=== PATIENT | male | born 1950 | race African-American/Black ===

== ENCOUNTER → 2016-03-25 | Outpatient (CLI) | payer OTHER ==
[~2016-03-25] MED LIST: REGADENOSON INJ 0.4 MG/5 ML DISP.SYRIN IV ONE
--- NOTE | 2016-03-25 21:27 | DRAGON STRESS TEST REPORT ---
INTRAVENOUS LEXISCAN CARDIOLITE STRESS TEST USING SINGLE PHOTON EMMISION COMPUTERIZED TOMOGRAPHIC. DATE OF PROCEDURE: March 25, 2016 INDICATION : Chest pain CARDIAC RISK FACTORS: Family history of CAD RESTING EKG: Sinus rhythm, without any baseline ST-T wave changes STRESS EKG: No significant changes noted with LexiScan bolus REASON FOR TERMINATION: Protocol. PROCEDURE REPORT: Baseline heart rate 61 beats per minute with blood pressure of 120/61. Patient had no significant complaints. Heart rate at 2 minutes post bolus 105 with a blood pressure of 111/59. 3 minutes post bolus heart rate 89 with blood pressure of 117/70. No significant EKG changes were noted. Patient had no significant complaints during the procedure or postprocedure. CONCLUSIONS: Normal EKG and hemodynamic response to IV LexiScan. NUCLEAR DATA: At rest the patient was given 16.40 millicuries of technetium 99 sestamibi injected intravenously. As per protocol rest gated SPECT images were obtained. Subsequently the patient was given intravenous LexiScan at a dose of 0.4 mg in 5 mL intravenously, followed by flush with normal saline. Subsequently the stress dose of 47.6 millicuries of technetium 99 sestamibi was injected intravenously. As per protocol stress gated images were obtained. NUCLEAR INTERPRETATION: Both raw and processed data were used for interpretation. Visual, qualitative, computer-generated quantitative data was used. There was good myocardial uptake of technetium compound. Motion artifact and soft tissue attenuations were noted. Increased visceral uptake was noted. No definitive areas of transient perfusion defect noted except for mild decreased uptake in the mid and distal inferior wall in stress images as compared to rest images. There was however no corresponding regional wall motion abnormalities noted in gated imaging. Possibility of differences in attenuation artifact cannot be ruled out. No definitive areas of fixed perfusion defect or scars noted. EKG gated imaging showed LV EF at 47 %, rest and stress gated EF similar visually. T. I D. ratio was 1.15. Lung heart ratio noted to be within normal limits 0.28. No significant extracardiac and abnormal radiotracer activities were noted. RV free wall uptake was noted to be mildly increased. IMPRESSION: Also refer to comments under nuclear interpretation. Also test results needs to be interpreted in the context of pretest probability. 1. Probable mild distal and mid inferior wall LexiScan induced myocardial ischemia. Please see comments under nuclear interpretation as well. 2. There is no definitive scintigraphic evidence of myocardial infarction/scar. 3. EKG gated imaging shows left ejection fraction of approximately 47 %. 4. Clinical correlation requested as occasionally single vessel disease or balanced ischemia could be missed. In approximately 10% of the cases Lexiscan may not cause adequate vasodilatory stress. RECOMMENDATIONS: Aggressive risk factor modification, medical therapy. Close cardiology follow- up is indicated. Clinical correlation with echocardiogram derived ejection fraction. Inability to exercise by itself can lead to increased cardiovascular event risks. Consider cardiology consultation if clinically indicated. I AM AVAILABLE FOR CARDIOLOGY CONSULTATION AND FOLLOWUP IF REQUESTED BY PMD Katherine Hummel M.D., [employer] Evaluator performance improvement analyst, Board certified in cardiovascular diseases, Nuclear cardiology, Echocardiography Cardiac CT and cardiac MRI Ph. [phone] [facility] HOSPITALRosemary
== END ==
LOC: RAD 06:45
PROVIDERS: ATTEND Nurse Practitioner Adult Health
DX: R07.89 Other chest pain (principal)
CPT/HCPCS: 93017; 78452; A9500; J2785; Q9969

== ENCOUNTER 2016-09-05 21:30 | Inpatient (IN) | payer OTHER, MEDICARE ==
--- NOTE | 2016-09-05 21:43 | ER Document Report ---
ED Neuro Symptoms/Deficit - General Mode of Arrival: Ambulatory Information source: Patient Notes: Patient is a 66 year old male presenting to the emergency department for possible stroke. Patient was rushed back into a room from triage. Patient's symptoms were onset less than 1 hour prior to arrival. Patient was complaining of right hand numbness and then he couldn't remember what he was saying. Patient 's son stood him up and he was leaning to the right side and unable to walk so he was put in the vehicle to come to the ED. Patient then had some difficulty getting his words out on the way to the ED but was unable to speak. Patient is tearful now during exam. Patient was normal earlier this evening when he had dinner and was able to go to [employer] this morning. Patient denies any abdominal pain, nausea, vomiting, diearrhea, chest pain, headache, neck pain, or shortness of breath. Patient's initial blood pressure was 129/85 with a blood glucose level of 91. Patient was quickly evaluated and sent to CT. Patient does not have any history of CVA, TIA or diabetes mellitus. Patient is not on any blood thinners. Patient has had open heart surgery. TRAVEL OUTSIDE OF THE [place] IN LAST 30 DAYS: No <ANICETO MARTE - Last Filed: 09/05/16 23:23> <GRAHAM SMITH - Last Filed: 09/05/16 23:45> - General Chief Complaint: S/S of Possible Stroke Stated Complaint: POSSIBLE STROKE Time Seen by Provider: 09/05/16 21:41 - Related Data Allergies/Adverse Reactions: No Known Allergies Allergy (Unverified 11/30/15 09:57) Past Medical History - General Information source: Patient - Social History Smoking Status: Never Smoker Cigarette use (# per day): No Family History: None Patient has suicidal ideation: No Patient has homicidal ideation: No - Past Medical History Cardiac Medical History: Reports: Hx Congestive Heart Failure, Hx Coronary Artery Disease, Hx Hypertension Endocrine Medical History: Reports: Hx Hypothyroidism Musculoskeltal Medical History: Reports Hx Arthritis Past Surgical History: Reports: Hx Cardiac Surgery, Hx Coronary Artery Bypass Graft <ANICETO MARTE - Last Filed: 09/05/16 23:23> Review of Systems - Review of Systems Constitutional: No symptoms reported EENT: No symptoms reported Cardiovascular: No symptoms reported Respiratory: No symptoms reported Gastrointestinal: No symptoms reported Genitourinary: No symptoms reported Male Genitourinary: No symptoms reported Musculoskeletal: No symptoms reported Skin: No symptoms reported Hematologic/Lymphatic: No symptoms reported Neurological/Psychological: See HPI, Weakness, Numbness -: Yes All other systems reviewed and negative <ANICETO MARTE - Last Filed: 09/05/16 23:23> Physical Exam - Notes Notes: GENERAL: Alert, oriented x3, tearful. HEAD: Normocephalic, atraumatic. EYES: Pupils equal, round, and reactive to light. Extraocular movements intact. ENT: Oral mucosa moist, tongue midline, normal gag reflex, no airway compromise. NECK: Full range of motion. Supple. Trachea midline. LUNGS: Clear to auscultation bilaterally, no wheezes, rales, or rhonchi. No respiratory distress. HEART: Regular rate and rhythm. No murmurs, gallops, or rubs. ABDOMEN: Soft, non-tender. Non-distended. Bowel sounds present in all 4 quadrants. EXTREMITIES: Moves all 4 extremities spontaneously. No edema, radial and dorsalis pedis pulses 2/4 bilaterally. No cyanosis. 2/4 in the right upper extremity compared to the left upper extremity. Normal strength and reflexes in the lower extremities. Finger to nose rhombey intact. NEUROLOGICAL: Alert and oriented x3. Normal speech. Cranial nerves II through XII grossly intact. PSYCH: Tearful. SKIN: Warm, dry, normal turgor. No rashes or lesions noted. <ANICETO MARTE - Last Filed: 09/05/16 23:23> Course - Laboratory Result Diagrams: 09/05/16 21:40 09/05/16 22:15 - Consults Vida Time consulted: 22:08 Reason for consultation: 09/05/16 22:08 contacted [facility], [place] to speak with neurologist 09/05/16 22:16 Call back from neurologist, Dr. Jarquin and discussed recommendations for patient. 09/05/16 23:25 Dr. Burks Time consulted: 23:09 Reason for consultation: 09/05/16 23:[address] Burks about patient; he will admit the patient. <ANICETO MARTE - Last Filed: 09/05/16 23:23> - Re-evaluation Re-evalutation: 09/05/16 21:51 Patient presents emergency department straight back from the triage area with strokelike symptoms. According to the family less than 1 hour ago the patient started complaining of right hand and arm numbness. They noticed shortly thereafter that he was trying to get his words out but was unable to speak. The son tried to stand him up that he had lean against and was unable to walk. On ED arrival the patient has expressive aphasia and 2 out of 4 strength in the right upper extremity compared to the left upper extremity. He has normal strength and reflexes in the lower extremity and is tearful on examination. His tongue is midline there is a positive gag reflex and no airway compromise. Accu-Chek was 91 EKG is being performed and patient was sent straight to the CT scanner where I reviewed the CT scan at the bedside. Waiting for official radiological read I do not see any acute bleed. Patient is brought back to the emergency department pending official read from the radiologist. In addition to additional laboratory evaluation. Family reports that he does not take any blood thinners nor that he has a history of CVA or TIA in the past. 09/05/16 22:23 Patient reassessed at the bedside he is significantly improved he can now lift his right arm on his own and has very minimal weakness in that area. In terms of his expressive aphasia he is now able to communicate his thought process and his speech is clear. And he shakes his head that he does not feeling as bad as he did when he initially arrived. I contacted Dr. JARQUIN who is a neurologist at [facility] who we agreed his current patient is currently an NIH stroke scale of 1. He said that they generally do not give thrombolytics to an NIH stroke scale of 1 but you have to offer it to the patient for their consideration. Long discussion with the patient at the bedside as well as the family who are discussing it currently and I explained the risks and benefits of the use of thrombolytics. 09/05/16 22:35 Discussion with patient and family at the bedside he does not want thrombolytics at this point in time they understand the risk and benefit and he has declined this. He is talking effortlessly and still has good motion of that right upper extremity. Plan is to admit him to the hospital further evaluation inpatient MRI carotid ultrasound and echocardiogram and further assessment and evaluation 09/05/16 23:13 - Laboratory Result Diagrams: 09/05/16 21:40 09/05/16 22:15 - EKG Interpretation by Me Additional EKG results interpreted by me: 09/05/16 23:14 EKG interpreted by myself to reveal sinus rhythm at [address] segment elevation or depression <GRAHAM SMITH - Last Filed: 09/05/16 23:45> Critical Care Note - Critical Care Note Total time excluding time spent on procedures (mins): 55 <GRAHAM SMITH - Last Filed: 09/05/16 23:45> ED [employer]/Exc Criteria ED NIH Stroke Scale - NIH Stroke Scale When completed:: Protocol *: 1. NIH scale should be completed with appropriate accompanying assessment tools. *: 2. The NIH should reflect what the patient is capable of doing and should not be coached by the clinician. 1a. Level of Consciousness: 0=Alert;keenly responsive -: 1=Drowsy -: 2=Obtunded -: 3=Coma/unresponsive or reflex to noxious stimuli. 1a. Responses: 0 1b. Orientation Questions: a. What month is it? -: b. How old are you? -: 0=Answers both questions correctly. -: 1=Answers one question correctly or patient is intubated or has orotracheal trauma. -: 2=Answers neither question correctly. 1b. Responses: 0 1c. Response to commands: a. Open and close eyes? -: b. Mold Maker Plaster and release hand? -: Credit is given despite weakness. Demonstration of task is permitted. Substitute command if hands cannot be used. -: 0=Performs both tasks correctly -: 1=Performs one task correctly -: 2=Performs neither task correctly 1c. Responses: 0 2. Gaze: Establish eye contact and instruct patient to "Follow my finger" -: 0=Normal -: 1=Partial gaze palsy. Gaze is abnormal in one or both eyes, but where forced deviation or total gaze paresis is not present. -: 2=Forced deviation or total gaze paresis. 2. Responses: 0 3. Visual Dias: Sees fingers in all four quadrants. -: 0=No visual loss. -: 1=Partial hemianopsia. -: 2=Complete hemianopsia. -: 3=Bilateral hemianopsia (including Cortical blindness) 3. Responses: 0 4. Facial Movement: Instruct patient to: -: a. Show me your teeth -: b. Raise your eyebrows -: c. Close your eyes -: d. Smile -: 0=Normal symmetrical movement -: 1=Minor paralysis (flattened nasolabial fold, asymmetry on smiling). -: 2=Partial paralysis (total or near total paralysis of lower face). -: 3=Complete paralysis of upper and lower face 4. Responses: 0 5. Motor functions (left arm): Alternate sides and extend each arm with palms down (90 degrees if sitting or 45 degrees for supine). -: 0=No drift;limb holds for full 10 seconds. -: 1=Drift; limb holds but drifts down before full 10 seconds, but does not hit bed. -: 2=Some effort against gravity; limb cannot get to or maintain position. -: 3=No effort against gravity; limb falls. -: 4=No movement. -: UN=Amputation, joint fusion, explain in comments. 5. Responses (left arm): 0 5. Motor Functions (right arm): Alternate sides and extend each arm with palms down (90 degrees if sitting or 45 degrees for supine). -: 0=No drift;limb holds for full 10 seconds. -: 1=Drift; limb holds but drifts down before full 10 seconds, but does not hit bed. -: 2=Some effort against gravity; limb cannot get to or maintain position. -: 3=No effort against gravity; limb falls. -: 4=No movement. -: UN=Amputation, joint fusion, explain in comments. 5. Responses (right arm): 1 6. Motor Functions (left leg): With patient lying supine, alternate sides and extend each leg (30 degrees always while supine). -: 0=No drift, leg holds position for full 5 seconds -: 1=Drift; leg falls before full 5 seconds but does not hit bed. -: 2=Some effort against gravity, leg falls to bed but some effort against gravity. -: 3=No effort against gravity, leg falls to bed immediately. -: 4=No movement. -: UN=Amputation, joint fusion; explain in comments. 6. Responses (left leg): 0 6. Motor Functions (right leg): With patient lying supine, alternate sides and extend each leg (30 degrees always while supine). -: 0=No drift, leg holds position for full 5 seconds -: 1=Drift; leg falls before full 5 seconds but does not hit bed. -: 2=Some effort against gravity, leg falls to bed but some effort against gravity. -: 3=No effort against gravity, leg falls to bed immediately. -: 4=No movement. -: UN=Amputation, joint fusion; explain in comments. 6. Responses (right leg): 0 7. Limb Ataxia: With eyes open instruct patient to: -: a. "Touch your finger to your nose". -: b. "Touch your heel to your morgan" -: 0=Absent -: 1=Present in one limb. -: 2=Present in two limbs. -: UN=Amputation or joint fusion; explain in comments. 7. Responses: 1 7. If ataxia present choose as appropriate: Right arm 8. Sensory: Test sensation using pinprick or noxious stimuli. Test as many body parts as possible. -: 0=Normal;no sensory loss -: 1=Mile to moderate sensory loss (patient feels pin prick but is less sharp on affected side). -: 2=Severe or total sensory loss. 8. Responses: 1 9. Best Language: Instruct patient to: -: a. "Describe what you see in this picture." -: b. "Name the items in this picture." -: c. "Read these sentences." -: 0=No aphasia, normal -: 1=Mild to moderate aphasia. -: 2=Severe aphasia -: 3=Mute, global aphasia, no usable speech or auditory comprehension. 9. Responses: 1 10. Articulation, Dysarthia: Instruct patient to: -: "Read these words" or "Repeat these words" -: 0=Normal -: 1=Mild to moderate; patient may slur some words but can be understood without difficulty. -: 2=Severe; patients speech so slurred as to be unintelligible in the absence of dysphasia. -: UN=Intubated or other physical barrier, explain in comments. 10. Responses: 0 11. Extinction or inattention: 0=No abnormality -: 1= Visual, tactile, auditory, spatial, or personal inattention or extinction to bilateral simulation in one or the sensory modalities. -: 2=Profound lisa-inattention or lisa-inattention to more than one modality; does not recognize own hand. 11. Responses: 0 Total Score: 4 <ANICETO MARTE - Last Filed: 09/05/16 23:23> Discharge <ANICETO MARTE - Last Filed: 09/05/16 23:23> - Discharge Admitting Provider: Hospitalist Unit Admitted: Telemetry Scribe Attestation: 09/05/16 23:11 I personally performed the services described in the documentation reviewed the documentation recorded by my scribe in my presence and it accurately and completely records my words and actions <GRAHAM SMITH - Last Filed: 09/05/16 23:45> - Discharge Clinical Impression: cva Condition: Stable Disposition: ADMITTED INPATIENT Scribe Documentation - Scribe Written by Scribe:: Ganesh Bucio 09/05/16 23:19 acting as scribe for :: Jovon <ANICETO MARTE - Last Filed: 09/05/16 23:23>
[2016-09-05 21:54] LABS: ABSOLUTE BASOPHILS # (AUTO) 0.1 10^3/uL (0.0-0.2); ABSOLUTE EOSINOPHILS # (AUTO) 0.3 10^3/uL (0.0-0.6); ABSOLUTE LYMPHOCYTES (AUTO) 2.5 10^3/uL (0.5-4.7); ABSOLUTE NEUT (AUTO) 5.7 10^3/uL (1.7-8.2); BASOPHILS % (AUTO) 0.8 % (0-2); EOSINOPHILS % (AUTO) 3.1 % (0-6); HEMATOCRIT 42.9 % (37.9-51.0); HGB HCT DIFFERENCE 2.1; MEAN CORPUSCULAR HEMOGLOBIN 32.2 pg (27.0-33.4); MEAN CORPUSCULAR HGB CONC 34.9 g/dL (32.0-36.0); MEAN CORPUSCULAR VOLUME 92 fl (80-97); MONOCYTES % (AUTO) 10.7 % (3-13); RED BLOOD COUNT 4.65 10^6/uL (4.35-5.55); SEGMENTED NEUTROPHILS % (AUTO) 59.4 % (42-78); WHITE BLOOD COUNT 9.6 10^3/uL (4.0-10.5)
[2016-09-05 21:58] LABS: PROTHROMBIN TIME 12.8 SEC (11.4-15.4)
[2016-09-05 21:59] LABS: PARTIAL THROMBOPLASTIN TIME 32.5 SEC (23.5-35.8)
--- NOTE | 2016-09-05 22:01 | RADIOLOGY REPORT (SQ) ---
EXAM DESCRIPTION: CT HEAD WITHOUT COMPLETED DATE/TIME: 09/05/2016 9:51 pm REASON FOR STUDY: stroke alert COMPARISON: None. TECHNIQUE: Axial images acquired through the brain without intravenous contrast. Images reviewed wi th bone, brain and subdural windows. Images stored on PACS. All CT scanners at this facility use dose modulation, iterative reconstruction, and/or weight based d osing when appropriate to reduce radiation dose to as low as reasonably achievable (ALARA). [facility]: Dose Right [facility]: CareDose [facility]: Dose Right [facility]: Teradose 4D [facility]: Smart Blueknow RADIATION DOSE: Up-to-date CT equipment and radiation dose reduction techniques were employed. CTDIv ol: 64.6 mGy. DLP: 1163 mGy-cm. mGy. LIMITATIONS: None. FINDINGS: VENTRICLES: Normal size and contour. CEREBRUM: No masses. No hemorrhage. No midline shift. Normal magaña/white matter differentiation. N o evidence for acute infarction. CEREBELLUM: No masses. No hemorrhage. No alteration of density. No evidence for acute infarction. EXTRAAXIAL SPACES: No fluid collections. No masses. ORBITS AND GLOBE: No intra- or extraconal masses. Normal contour of globe without masses. CALVARIUM: No fracture. PARANASAL SINUSES: No fluid or mucosal thickening. SOFT TISSUES: No mass or hematoma. OTHER: No other significant finding. IMPRESSION: NORMAL BRAIN CT WITHOUT CONTRAST. COMMENT: Pertinent positive or negative findings of the imaging study reported as a CRITICAL EXAM becky SMITH MD at21:54 on 09/05/2016. Category of Critical Exam: Stroke alert TECHNICAL DOCUMENTATION: JOB ID: [id number] Quality ID # [id number]: Final reports with documentation of one or more dose reduction techniques (e.g., Au tomated exposure control, adjustment of the mA and/or kV according to patient size, use of iterative reconstruction technique) 2010 [employer]- All Rights Reserved
--- NOTE | 2016-09-05 22:07 | RADIOLOGY REPORT (SQ) ---
EXAM DESCRIPTION: CHEST SINGLE VIEW COMPLETED DATE/TIME: 09/05/2016 9:56 pm REASON FOR STUDY: stroke alert COMPARISON: None. EXAM PARAMETERS: NUMBER OF VIEWS: One view. TECHNIQUE: Single frontal radiographic view of the chest acquired. RADIATION DOSE: NA LIMITATIONS: None. FINDINGS: LUNGS AND PLEURA: No opacities, masses or pneumothorax. No pleural effusion. MEDIASTINUM AND HILAR STRUCTURES: No masses. Contour normal. HEART AND VASCULAR STRUCTURES: Heart normal in size. Normal vasculature. BONES: No acute findings. HARDWARE: Patient is status post median sternotomy. OTHER: No other significant finding. IMPRESSION: NO ACUTE RADIOGRAPHIC FINDING IN THE CHEST. TECHNICAL DOCUMENTATION: JOB ID: [id number]
[2016-09-05 22:41] LABS: ALANINE AMINOTRANSFERASE 31 U/L (21-72); ALKALINE PHOSPHATASE 58 U/L (38-126); ANION GAP 10 (5-19); ASPARTATE AMINO TRANSFERASE 21 U/L (17-59); BILIRUBIN,DIRECT 0.2 mg/dL (0.0-0.4); BILIRUBIN,TOTAL 0.6 mg/dL (0.2-1.3); BLOOD UREA NITROGEN 12 mg/dL (7-20); CALCIUM 9.3 mg/dL (8.4-10.2); CARBON DIOXIDE 26 mmol/L (22-30); CHLORIDE 108 mmol/L (98-107); CREATINE KINASE 390 U/L (55-170); CREATININE RESULT 1.26 mg/dL (0.52-1.25); GLUCOSE 113 mg/dL (75-110); POTASSIUM 3.7 mmol/L (3.6-5.0); SODIUM 143.6 mmol/L (137-145)
[2016-09-05 22:57] LABS: CREATINE KINASE MB 3.09 ng/mL (<4.55)
[2016-09-05 22:58] LABS: TROPONIN I < 0.012 ng/mL
[2016-09-05] MEDS ORDERED: DOCUSATE SODIUM 100 MG CAPSULE PO PRN (23:15)
[2016-09-05] MEDS ORDERED: ACETAMINOPHEN 325 MG TABLET PO PRN (23:15)
[2016-09-05] MEDS ORDERED: MAGNESIUM HYDROXIDE SUSP 30 ML UDCUP PO PRN (23:15)
[2016-09-05] MEDS ORDERED: ASPIRIN 325 MG TABLET, ENT COATED PO ONE (23:21)
[2016-09-05] MEDS ORDERED: ATORVASTATIN CALCIUM 80 MG TABLET PO ONE (23:30)
--- NOTE | 2016-09-06 00:52 | PDOC H&P ---
History of Present Illness Admission Date/PCP: 09/05/16 23:16 Patient complains of: Difficulty with speech History of Present Illness: KAMERON WILSON is a 66 year old male with a past medical history of coronary artery disease, remote right atrial myxoma, obstructive sleep apnea, dyslipidemia, hypothyroidism, obesity and chronic low back pain who had been in his usual state of health until approximately 1 hour prior to presentation. Following a meal he had difficulty verbalizing in addition to right-sided weakness. He is brought to the emergency room for evaluation. Denying headache , blurred vision, jaw pain while chewing, palpitations, chest pain nausea vomiting or previous episode. No recent change in medication in the emergency room his speech and weakness improved and his initial workup was unremarkable, he is referred to the hospitalist for admission. Past Medical History Cardiac Medical History: Reports: Congestive Heart Failure, Coronary Artery Disease, Hypertension Endocrine Medical History: Reports: Hypothyroidism Musculoskeltal Medical History: Reports: Arthritis Past Surgical History Past Surgical History: Reports: Coronary Artery Bypass Graft Social History Information Source: Patient, Relative Lives with: Family Smoking Status: Never Smoker Frequency of Alcohol Use: None Hx Recreational Drug Use: No Drugs: None Hx Prescription Drug Abuse: No - Advance Directive Resuscitation Status: Full Code Family History Family History: None, CVA, DM Parental Family History Reviewed: Yes Children Family History Reviewed: Yes Sibling(s) Family History Reviewed.: Yes Medication/Allergy Home Medications: Levothyroxine Sodium [Synthroid] 175 mcg PO DAILY 11/30/15 Oxycodone HCl [Oxy-Ir 5 mg Tablet] 5 mg PO Q6HP PRN 11/30/15 Aspirin [Ecotrin 81 mg EC Tablet] 81 mg PO DAILY tabec 12/03/15 Levofloxacin [Levaquin 750 mg Tablet] 750 mg PO DAILY #11 tab 12/03/15 Allergies/Adverse Reactions: No Known Allergies Allergy (Unverified 11/30/15 09:57) Review of Systems Constitutional: ABSENT: chills, fever(s), headache(s), weight gain, weight loss Eyes: ABSENT: visual disturbances Ears: ABSENT: hearing changes Cardiovascular: ABSENT: chest pain, dyspnea on exertion, edema, orthropnea, palpitations Respiratory: ABSENT: cough, hemoptysis Gastrointestinal: ABSENT: abdominal pain, constipation, diarrhea, hematemesis, hematochezia, nausea, vomiting Genitourinary: ABSENT: dysuria, hematuria Musculoskeletal: ABSENT: joint swelling Integumentary: ABSENT: rash, wounds Neurological: ABSENT: abnormal gait, abnormal speech, confusion, dizziness, focal weakness, syncope Psychiatric: ABSENT: anxiety, depression, homidical ideation, suicidal ideation Endocrine: ABSENT: cold intolerance, heat intolerance, polydipsia, polyuria Hematologic/Lymphatic: ABSENT: easy bleeding, easy bruising Physical Exam Vital Signs: Temp Pulse Resp BP Pulse Ox 65 17 117/80 95 09/05/16 21:34 09/06/16 00:01 09/06/16 00:01 09/06/16 00:01 General appearance: PRESENT: cooperative, mild distress, obese, well-developed, well-nourished Head exam: PRESENT: atraumatic, normocephalic Eye exam: PRESENT: conjunctiva pink, EOMI, PERRLA. ABSENT: scleral icterus Ear exam: PRESENT: normal external ear exam Mouth exam: PRESENT: moist, tongue midline Neck exam: ABSENT: carotid bruit, JVD, lymphadenopathy, thyromegaly Respiratory exam: PRESENT: clear to auscultation [place]. ABSENT: rales, rhonchi, wheezes Cardiovascular exam: PRESENT: RRR. ABSENT: diastolic murmur, rubs, systolic murmur Pulses: PRESENT: normal dorsalis pedis pul Vascular exam: PRESENT: normal capillary refill GI/Abdominal exam: PRESENT: normal bowel sounds, soft. ABSENT: distended, guarding, mass, organolmegaly, rebound, tenderness Rectal exam: PRESENT: deferred Extremities exam: PRESENT: full ROM. ABSENT: calf tenderness - 1 mg, clubbing, pedal edema Neurological exam: PRESENT: alert, awake, oriented to person, oriented to place , oriented to time, oriented to situation, reflexes normal, ataxia, CN II-XII grossly intact, motor sensory deficit, aphasic - Expressive aphasia Psychiatric exam: PRESENT: appropriate affect, normal mood. ABSENT: homicidal ideation, suicidal ideation Skin exam: PRESENT: dry, intact, warm. ABSENT: cyanosis, rash Results Impressions: Chest X-Ray 09/05/16 21:34 IMPRESSION: NO ACUTE RADIOGRAPHIC FINDING IN THE CHEST. Head CT 09/05/16 21:34 IMPRESSION: NORMAL BRAIN CT WITHOUT CONTRAST. Assessment & Plan - Diagnosis (1) Acute CVA (cerebrovascular accident) Is this a current diagnosis for this admission?: YesPlan: Admitted to monitored bed with CVA care set, aspirin, Lipitor, permissive hypertension, evaluation risk factors for cerebrovascular disease. Physical therapy and Occupational Therapy consult (2) Right sided weakness Is this a current diagnosis for this admission?: YesPlan: Secondary to acute CVA therapy and Occupational Therapy consult (3) Expressive aphasia Is this a current diagnosis for this admission?: YesPlan: Secondary to acute CVA therapy consult (4) Obstructive sleep apnea Is this a current diagnosis for this admission?: YesPlan: CPAP ordered. - Time Time Spent: 50 to 70 Minutes - Inpatient Certification Medical Necessity: Need Close Monitoring Due to Risk of Patient Decompensation
[2016-09-06] MEDS ORDERED: ASPIRIN 325 MG TABLET, ENT COATED PO ONE (04:00)
[2016-09-06] MEDS ORDERED: ATORVASTATIN CALCIUM 80 MG TABLET PO ONE (04:00)
[2016-09-06 04:58] LABS: ABSOLUTE BASOPHILS # (AUTO) 0.1 10^3/uL (0.0-0.2); ABSOLUTE EOSINOPHILS # (AUTO) 0.2 10^3/uL (0.0-0.6); ABSOLUTE MONOCYTES (AUTO) 0.6 10^3/uL (0.1-1.4); ABSOLUTE NEUT (AUTO) 4.3 10^3/uL (1.7-8.2); BASOPHILS % (AUTO) 0.7 % (0-2); EOSINOPHILS % (AUTO) 3.4 % (0-6); HEMATOCRIT 40.5 % (37.9-51.0); HEMOGLOBIN 13.9 g/dL (13.5-17.0); HGB HCT DIFFERENCE 1.2; LYMPHOCYTES % (AUTO) 27.6 % (13-45); MEAN CORPUSCULAR HEMOGLOBIN 31.9 pg (27.0-33.4); MEAN CORPUSCULAR HGB CONC 34.4 g/dL (32.0-36.0); MEAN CORPUSCULAR VOLUME 93 fl (80-97); MONOCYTES % (AUTO) 8.1 % (3-13); RED BLOOD COUNT 4.35 10^6/uL (4.35-5.55); RED CELL DISTRIBUTION WIDTH 13.9 % (11.5-14.0); SEGMENTED NEUTROPHILS % (AUTO) 60.2 % (42-78); WHITE BLOOD COUNT 7.1 10^3/uL (4.0-10.5)
[2016-09-06 05:21] LABS: ANION GAP 10 (5-19); BLOOD UREA NITROGEN 14 mg/dL (7-20); CALCIUM 8.9 mg/dL (8.4-10.2); CARBON DIOXIDE 23 mmol/L (22-30); CHLORIDE 109 mmol/L (98-107); CHOLESTEROL 176.95 mg/dL (0-200); CREATINE KINASE 339 U/L (55-170); CREATININE RESULT 1.11 mg/dL (0.52-1.25); Direct HDL 44 mg/dL (>40); GLUCOSE 96 mg/dL (75-110); POTASSIUM 4.2 mmol/L (3.6-5.0); SODIUM 141.5 mmol/L (137-145); TRIGLYCERIDES 189 mg/dL (<150)
[2016-09-06 05:32] LABS: DIRECT LDL 90 mg/dL (<100)
[2016-09-06 05:33] LABS: VLDL CHOLESTEROL 37.8 mg/dL (10-31)
[2016-09-06 05:34] LABS: CREATINE KINASE MB 2.83 ng/mL (<4.55)
[2016-09-06 05:40] LABS: TROPONIN I < 0.012 ng/mL
[2016-09-06] MEDS: HEPARIN SOD (PORCINE) 5,000 UNIT/ML 1 ML SYRINGE SUBCUT SCH ×3 (06:24→22:10)
[2016-09-06] MEDS ORDERED: NORMAL SALINE 1000 ML 1,000 ML IV PRN (07:31)
[2016-09-06] MEDS ORDERED: LEVOTHYROXINE SODIUM 0.088 MG TABLET PO SCH ×2 (08:00)
[2016-09-06] MEDS ORDERED: LEVOTHYROXINE SODIUM 0.1 MG TABLET PO SCH (08:00)
[2016-09-06] MEDS ORDERED: LEVOTHYROXINE SODIUM 0.075 MG TABLET PO SCH (08:00)
[2016-09-06] MEDS ORDERED: ASPIRIN 325 MG TABLET, ENT COATED PO SCH (10:00)
[2016-09-06] MEDS ORDERED: ASPIRIN 81 MG TABLET, ENT COATED PO SCH (10:00)
--- NOTE | 2016-09-06 10:11 | RADIOLOGY REPORT (SQ) ---
EXAM DESCRIPTION: MRI HEAD WITHOUT COMPLETED DATE/TIME: 09/06/2016 9:35 am REASON FOR STUDY: aphasia, R arm weakness COMPARISON: CT dated 09/05/2016. TECHNIQUE: Multiplanar imaging includes non-contrasted T1, T2, FLAIR, and diffusion with ADC map seq uences. Images stored on PACS. LIMITATIONS: None. FINDINGS: ANATOMY: No anomalies. Normal vascular flow voids. Pituitary fossa normal. CSF SPACES: Normal in size and contour. No hemorrhage. CEREBRUM: Sulci and gyri normal in size and contour. Normal white matter signal on FLAIR imaging. No evidence of hemorrhage, mass, or extraaxial fluid collection. POSTERIOR FOSSA: No signal alteration. No hemorrhage. No edema, masses or mass effect. Internal isaac tory canals, cerebello-pontine angles, mastoids normal. DIFFUSION IMAGING: Focal area of restricted diffusion in the left posterior parietal lobe. ORBITS: No masses. Globes normal. PARANASAL SINUSES: No fluid levels. Mucosa normal. OTHER: No other significant finding. IMPRESSION: FOCAL AREA OF RESTRICTED DIFFUSION IN THE LEFT POSTERIOR PARIETAL LOBE CONSISTENT WITH A CUTE INFARCT. EVIDENCE OF ACUTE STROKE: YES. LEFT MCA. TECHNICAL DOCUMENTATION: JOB ID: [id number] [employer]- All Rights Reserved
[2016-09-06 11:18] LABS: CREATINE KINASE MB 2.61 ng/mL (<4.55)
[2016-09-06 11:22] LABS: TROPONIN I < 0.012 ng/mL
--- NOTE | 2016-09-06 12:14 | XCELERA REPORT ---
[address] [address] Transthoracic Echocardiogram Report Name: KAMERON WILSON Age: 66 yrs Gender: Male : 1950 Patient Status: Inpatient Patient Location: [id number]\317\[id number] Study Date: 09/06/2016 10:23 AM Height: 70 in Weight: 263 lb BSA: 2.3 m2 Procedure: A complete two-dimensional transthoracic echocardiogram was performed (2D, M-mode, spectral and color flow Doppler). The study was technically difficult with many images being suboptimal in quality. Reason For Study: tia Ordering Physician: ZAKIYA BURKS Performed By: Mariia Mireles Interpretation Summary The study was technically difficult with many images being suboptimal in quality. The left ventricular ejection fraction is normal. There is mild concentric left ventricular hypertrophy. The left ventricle is grossly normal size. Doppler measurements suggest impaired left ventricular relaxation, which is associated with grade I/IV or mild diastolic dysfunction Not all wall segments were well visualized. Regional wall motion abnormalities cannot be excluded due to limited visualization. The right ventricle is borderline dilated. The right ventricular systolic function is normal. The right atrium is normal in size The left atrial size is normal. There is a trace amount of mitral regurgitation There is no mitral valve stenosis. No aortic regurgitation is present. There is no aortic valve stenosis There is a trace or physiologic amount of tricuspid regurgitation Tricuspid regurgitation jet envelope not well defined to measure RV systolic pressure accurately. The aortic root is not well visualized. The inferior vena cava appeared normal and decreased > 50% with respiration (RAP 5-10 mmHg) There is no pericardial effusion. No definite cardiac source of CVA/TIA noted on this particular trans- thoracic study. Consider RICO if clinically indicated. May consider mobile cardiac telemetry monitoring (MCT) for ruling out transient AFIB. MMode/2D Measurements \T\ Calculations RVDd: 3.4 cm LVIDd: 4.5 cm FS: 42.8 % Ao root diam: 3.0 cm IVSd: 1.1 cm LVIDs: 2.6 cm EDV(Teich): 92.8 ml LVPWd: 1.2 cm ESV(Teich): 24.0 ml Ao root area: 7.2 cm2 EF(Teich): 74.1 % Doppler Measurements \T\ Calculations MV E max lexis: MV dec slope: Ao V2 max: PA V2 max: 58.0 cm/sec 123.0 cm/sec 56.3 cm/sec MV A max lexis: 237.1 cm/sec2 Ao max PG: PA max P.7 cm/sec MV dec time: 6.0 mmHg 1.3 mmHg MV E/A: 0.84 0.24 sec TR max lexis: 103.5 cm/sec TR max P.3 mmHg Left Ventricle The left ventricle is grossly normal size. There is mild concentric left ventricular hypertrophy. The left ventricular ejection fraction is normal. Doppler measurements suggest impaired left ventricular relaxation, which is associated with grade I/IV or mild diastolic dysfunction. Not all wall segments were well visualized. Regional wall motion abnormalities cannot be excluded due to limited visualization. Right Ventricle The right ventricle is borderline dilated. There is normal right ventricular wall thickness. The right ventricular systolic function is normal. Atria The right atrium is normal in size. The left atrial size is normal. Interarterial septum not well visualized and not well dopplered. Cannot comment on ASD/PFO presence. Mitral Valve The mitral valve is grossly normal. There is no mitral valve stenosis. There is a trace amount of mitral regurgitation. Aortic Valve The aortic valve is grossly normal. There is no aortic valve stenosis. No aortic regurgitation is present. Tricuspid Valve The tricuspid valve is not well visualized, but is grossly normal. There is no tricuspid stenosis. There is a trace or physiologic amount of tricuspid regurgitation. Tricuspid regurgitation jet envelope not well defined to measure RV systolic pressure accurately. Pulmonic Valve The pulmonic valve is not well visualized. Great Vessels The aortic root is not well visualized. The inferior vena cava appeared normal and decreased > 50% with respiration (RAP 5-10 mmHg). Effusions There is no pericardial effusion. Incidental Findings No definite cardiac source of CVA/TIA noted on this particular trans- thoracic study. Consider RICO if clinically indicated. May consider mobile cardiac telemetry monitoring (MCT) for ruling out transient AFIB. : ZAKIYA BURKS > Katherine Hummel
[2016-09-06] MEDS ORDERED: ACETAMINOPHEN 325 MG TABLET PO PRN (12:41)
[2016-09-06] MEDS ORDERED: MAGNESIUM HYDROXIDE SUSP 30 ML UDCUP PO PRN (12:41)
--- NOTE | 2016-09-06 13:02 | RADIOLOGY REPORT (SQ) ---
EXAM DESCRIPTION: CAROTID DOPPLER COMPLETED DATE/TIME: 09/06/2016 12:49 pm REASON FOR STUDY: aphasia R arm weakness COMPARISON: None. TECHNIQUE: Grayscale ultrasound, Doppler velocity and spectra, and color Doppler images acquired of the extra-cranial carotid and vertebral arteries. Images stored on PACS. LIMITATIONS: None. FINDINGS: RIGHT CAROTID CCA Velocities: Within normal limits. ICA Velocities Peak systolic 0.86 m/s. End diastolic 0.32 m/s. Proximal ICA/CCA peak systolic ratio 0.8. Spectra normal. No significant plaque. LEFT CAROTID CCA Velocities: Within normal limits. ICA Velocities Peak systolic 0.90 m/s. End diastolic 0.37 m/s. Proximal ICA/CCA peak systolic ratio 1.2. Spectra normal. No significant plaque. VERTEBRAL ARTERIES: Antegrade flow. Normal waveforms. SUBCLAVIAN ARTERIES: Not imaged. OTHER: No other significant finding. IMPRESSION: NO HEMODYNAMICALLY SIGNIFICANT STENOSIS. COMMENT: Quality ID #[id number]: Velocity criteria are extrapolated from the diameter data as defined by t he Society of Radiologists in Ultrasound Consensus Conference. Radiology 2003: 229; 340-346. TECHNICAL DOCUMENTATION: JOB ID: [id number] [employer]- All Rights Reserved
--- NOTE | 2016-09-06 13:30 | PDOC PROGRESS REPORT ---
Subjective Progress Note for:: 09/06/16 Subjective:: Patient continues to have RUE weakness. Reports improvement with his RLE and speech. Would like to eat. Patient denies chest pain, shortness of breath, abdominal pain, nausea, vomiting , fevers, chills, diarrhea, constipation, headache. Patient reports that he already takes a full dose aspirin at home daily. He does admit to occasional palpitations. Patient reports he uses his CPAP regularly. Physical Exam Vital Signs: Temp Pulse Resp BP Pulse Ox 97.7 F 66 16 115/78 98 09/06/16 03:51 09/06/16 04:00 09/06/16 05:19 09/06/16 04:00 09/06/16 05:19 Intake & Output 09/05/16 09/06/16 09/07/16 06:59 06:59 06:59 Intake Total 202 Balance 202 Weight 120.9 kg Exam: General: Awake alert and oriented x3, no acute respiratory distress HEENT: AT/NC, PERRL, EOMI, oropharynx is moist, pink, no scleral icterus, no conjunctival injection Neck: No JVD, trachea midline Chest: Clear to auscultation bilaterally, no wheezes rhonchi or rales CV: Regular rate and rhythm, normal S1 and S2, no murmur, rub, or gallop Abdomen: Obese, soft, nontender to palpation, nondistended, active bowel sounds ; no rebound, rigidity, or guarding Extremities: No cyanosis, clubbing or edema Neuro: slight dysarthria, RUE 4-/5, RLE 4+/5; awake alert and oriented x3 Psych: Normal mood and affect Results Laboratory Results: 09/06/16 04:28 09/06/16 04:28 09/06/16 09/06/16 04:28 04:28 WBC 7.1 RBC 4.35 Hgb 13.9 Hct 40.5 MCV 93 MCH 31.9 MCHC 34.4 RDW 13.9 Plt Count 178 Seg Neutrophils % 60.2 Lymphocytes % 27.6 Monocytes % 8.1 Eosinophils % 3.4 Basophils % 0.7 Absolute Neutrophils 4.3 Absolute Lymphocytes 2.0 Absolute Monocytes 0.6 Absolute Eosinophils 0.2 Absolute Basophils 0.1 Sodium 141.5 Potassium 4.2 Chloride 109 H Carbon Dioxide 23 Anion Gap 10 BUN 14 Creatinine 1.11 Est GFR ( Amer) > 60 Est GFR (Non-Af Amer) > 60 Glucose 96 Calcium 8.9 Triglycerides 189 H Cholesterol 176.95 LDL Cholesterol Direct 90 VLDL Cholesterol 37.8 H HDL Cholesterol 44 09/06/16 09/06/16 04:28 04:28 Creatine Kinase 339 H CK-MB (CK-2) 2.83 Troponin I < 0.012 Impressions: Chest X-Ray 09/05/16 21:34 IMPRESSION: NO ACUTE RADIOGRAPHIC FINDING IN THE CHEST. Head CT 09/05/16 21:34 IMPRESSION: NORMAL BRAIN CT WITHOUT CONTRAST. Assessment & Plan - Diagnosis (1) Acute CVA (cerebrovascular accident) Is this a current diagnosis for this admission?: YesPlan: Begin patient on aggrenox. Failed asprin. Patient will need MCT as an outpatient. Patient with a history of atrial myxoma and palpitations. Have concerns for undiagnosed a-fib. Continue patient on Lipitor. Place patient on NS @125mL/hr as his BP is slightly low. Allow for permissive htn for first 24 hours. Currently pending ECHO and Carotid doppler. In light of his history after midnight and then she can have clears today and then can feel when I cannot do anything there is no family meeting and he is awake alert and oriented, but (2) Expressive aphasia Is this a current diagnosis for this admission?: Yes (3) Obstructive sleep apnea Is this a current diagnosis for this admission?: YesPlan: Continue CPAP (4) Right sided weakness Is this a current diagnosis for this admission?: Yes (5) Hepatitis C Qualifiers: Viral hepatitis chronicity: chronic Hepatic coma status: without hepatic coma Qualified Code(s): B18.2 - Chronic viral hepatitis C Is this a current diagnosis for this admission?: YesPlan: May follow up with GI as an outpatient (6) Hypothyroidism Qualifiers: Hypothyroidism type: unspecified Qualified Code(s): E03.9 - Hypothyroidism, unspecified Is this a current diagnosis for this admission?: YesPlan: Patient poorly repleted. Increase to 200mcg daily (7) History of atrial myxoma Is this a current diagnosis for this admission?: YesPlan: Patient s/p open heart for this. - Time Time Spent with patient: 25-34 minutes Medications reviewed and adjusted accordingly: Yes Anticipated discharge: Home with Homehealth Within: within 24 hours - Inpatient Certification Based on my medical assessment, after consideration of the patient's comorbidities, presenting symptoms, or acuity I expect that the services needed warrant INPATIENT care.: Yes I certify that my determination is in accordance with my understanding of Medicare's requirements for reasonable and necessary INPATIENT services [42 CFR 412.3e].: Yes Medical Necessity: Need For Continuous Telemetry Monitoring Post Hospital Care: D/C Rubber Block Layer Documentation
--- NOTE | 2016-09-06 13:57 | EKG REPORT ---
SEVERITY:- NORMAL ECG - SINUS RHYTHM : Confirmed by: Malena Daley MD 06-Sep-2016 13:56:58
[2016-09-06 17:04] LABS: CREATINE KINASE MB 2.34 ng/mL (<4.55)
[2016-09-06 17:09] LABS: TROPONIN I < 0.012 ng/mL
[2016-09-06] MEDS ORDERED: ATORVASTATIN CALCIUM 80 MG TABLET PO SCH (22:00)
[2016-09-06] MEDS: ASPIRIN/DIPYRIDAMOLE 25-200 MG 1 CAP.SR CPMP.12HR PO SCH (22:10)
[2016-09-07] MEDS ORDERED: LEVOTHYROXINE SODIUM 0.1 MG TABLET PO SCH (06:00)
[2016-09-07] MEDS: HEPARIN SOD (PORCINE) 5,000 UNIT/ML 1 ML SYRINGE SUBCUT SCH (06:28)
[2016-09-07] MEDS: ASPIRIN/DIPYRIDAMOLE 25-200 MG 1 CAP.SR CPMP.12HR PO SCH (09:21)
[2016-09-07] MEDS ORDERED: ASPIRIN 81 MG TABLET, ENT COATED PO SCH (10:00)
[2016-09-07 12:08] VITALS: BP 110/57
--- NOTE | 2016-09-07 13:41 | PDOC DISCHARGE SUMMARY ---
General - Admit/Disc Date/PCP Admission Date/Primary Care Provider: 09/05/16 23:16 Discharge Date: 09/07/16 - Additional Information Resuscitation Status: Full Code Discharge Diet: Cardiac Discharge Activity: Activity As Tolerated Home Medications: Furosemide 20 mg PO DAILY 09/06/16 Oxycodone HCl/Acetaminophen [Oxycodone-Acetaminophen 5-325] 1 each PO TIDP PRN 09/06/16 Aspirin [Aspirin 325 mg Tablet] 325 mg PO DAILY PRN #1 pkg 09/07/16 Levothyroxine Sodium [Synthroid 0.1 mg Tablet] 0.2 mg PO Q6AM #60 tablet History of Present Illness Patient complains of: Speech difficulty History of Present Illness: KAMERON WILSON is a 66 year old male with a past medical history of coronary artery disease, remote right atrial myxoma, obstructive sleep apnea, dyslipidemia, hypothyroidism, obesity and chronic low back pain who had been in his usual state of health until approximately 1 hour prior to presentation. Following a meal he had difficulty verbalizing in addition to right-sided weakness. He is brought to the emergency room for evaluation. Denying headache , blurred vision, jaw pain while chewing, palpitations, chest pain nausea vomiting or previous episode. No recent change in medication in the emergency room his speech and weakness improved and his initial workup was unremarkable, he is referred to the hospitalist for admission. Hospital Course Hospital Course: Patient was admitted for stroke symptoms. MRI of the brain in fact showed an acute left parietal ischemic stroke. Patient was on aspirin 81 mg at time of admission. This was initially stopped and he was started on Aggrenox. Aggrenox caused headache so this was discontinued. Patient was then put on aspirin 325 mg daily at time of discharge. Cholesterol panel does not warrant statin therapy. Carotid Dopplers showed no significant. Echocardiogram showed no cardioembolic source of stroke. Patient was evaluated by therapy and will need outpatient PT/OT. His expressive aphasia has basically resolved. Physical Exam Vital Signs: Temp Pulse Resp BP Pulse Ox 98.2 F 59 L 20 110/57 L 98 09/07/16 11:11 09/07/16 12:00 09/07/16 12:00 09/07/16 12:00 09/07/16 12:00 Intake & Output 09/06/16 09/07/16 09/08/16 06:59 06:59 06:59 Intake Total 1999 Balance 1999 Weight 120.9 kg 121.6 kg GENERAL: No acute distress HEENT: Conjunctiva clear, nonicteric, moist mucous membranes, no JVD, midline trachea RESPIRATORY: Clear to auscultation bilaterally, no wheezes, no rhonchi CARDIAC: Regular rate and rhythm, no murmurs/gallops/rubs ABDOMEN: Soft, nondistended, nontender, positive bowel sounds, no rebound, no guarding EXTREMETIES: No edema, cyanosis, clubbing NEUROLOGIC: Alert, oriented to person/place/time, CN's grossly intact, no focal deficits SKIN: No rash, wounds PSYCH: Normal mood, normal affect Results Laboratory Results: 09/06/16 04:28 09/06/16 04:28 09/06/16 09/06/16 09/06/16 04:28 04:28 10:35 Creatine Kinase 339 H 325 H CK-MB (CK-2) 2.83 Troponin I < 0.012 09/06/16 09/06/16 09/06/16 10:35 16:30 16:30 Creatine Kinase 296 H CK-MB (CK-2) 2.61 2.34 Troponin I < 0.012 < 0.012 Labs- Entire Visit 09/05/16 09/05/16 09/05/16 21:40 21:40 21:40 WBC 9.6 RBC 4.65 Hgb 15.0 Hct 42.9 MCV 92 MCH 32.2 MCHC 34.9 RDW 14.0 Plt Count 201 Seg Neutrophils % 59.4 Lymphocytes % 26.0 Monocytes % 10.7 Eosinophils % 3.1 Basophils % 0.8 Absolute Neutrophils 5.7 Absolute Lymphocytes 2.5 Absolute Monocytes 1.0 Absolute Eosinophils 0.3 Absolute Basophils 0.1 PT 12.8 INR 0.90 APTT 32.5 Sodium Cancelled Potassium Cancelled Chloride Cancelled Carbon Dioxide Cancelled Anion Gap Cancelled BUN Cancelled Creatinine Cancelled Est GFR ( Amer) Cancelled Est GFR (Non-Af Amer) Cancelled Glucose Cancelled POC Glucose Hemoglobin A1c % Calcium Cancelled Total Bilirubin Cancelled Direct Bilirubin Cancelled Indirect Bilirubin Cancelled Neonat Total Bilirubin Cancelled AST Cancelled ALT Cancelled Alkaline Phosphatase Cancelled Creatine Kinase Cancelled CK-MB (CK-2) Troponin I Total Protein Cancelled Albumin Cancelled Triglycerides Cholesterol LDL Cholesterol Direct VLDL Cholesterol HDL Cholesterol TSH Free T4 09/05/16 09/05/16 09/05/16 21:40 21:43 22:15 WBC RBC Hgb Hct MCV MCH MCHC RDW Plt Count Seg Neutrophils % Lymphocytes % Monocytes % Eosinophils % Basophils % Absolute Neutrophils Absolute Lymphocytes Absolute Monocytes Absolute Eosinophils Absolute Basophils PT INR APTT Sodium 143.6 Potassium 3.7 Chloride 108 H Carbon Dioxide 26 Anion Gap 10 BUN 12 Creatinine 1.26 H Est GFR ( Amer) > 60 Est GFR (Non-Af Amer) 57 L Glucose 113 H POC Glucose 91 Hemoglobin A1c % Calcium 9.3 Total Bilirubin 0.6 Direct Bilirubin 0.2 Indirect Bilirubin Not Reportable Neonat Total Bilirubin Not Reportable AST 21 ALT 31 Alkaline Phosphatase 58 Creatine Kinase 390 H CK-MB (CK-2) Cancelled Troponin I Cancelled Total Protein 7.0 Albumin 4.0 Triglycerides Cholesterol LDL Cholesterol Direct VLDL Cholesterol HDL Cholesterol TSH Free T4 09/05/16 09/05/16 09/05/16 22:15 22:15 22:30 WBC RBC Hgb Hct MCV MCH MCHC RDW Plt Count Seg Neutrophils % Lymphocytes % Monocytes % Eosinophils % Basophils % Absolute Neutrophils Absolute Lymphocytes Absolute Monocytes Absolute Eosinophils Absolute Basophils PT INR APTT Sodium Potassium Chloride Carbon Dioxide Anion Gap BUN Creatinine Est GFR ( Amer) Est GFR (Non-Af Amer) Glucose POC Glucose Hemoglobin A1c % Calcium Total Bilirubin Direct Bilirubin Indirect Bilirubin Neonat Total Bilirubin AST ALT Alkaline Phosphatase Creatine Kinase CK-MB (CK-2) 3.09 Troponin I < 0.012 Total Protein Albumin Triglycerides Cholesterol LDL Cholesterol Direct VLDL Cholesterol HDL Cholesterol TSH 25.30 H Free T4 0.70 L 09/06/16 09/06/16 09/06/16 04:28 04:28 04:28 WBC 7.1 RBC 4.35 Hgb 13.9 Hct 40.5 MCV 93 MCH 31.9 MCHC 34.4 RDW 13.9 Plt Count 178 Seg Neutrophils % 60.2 Lymphocytes % 27.6 Monocytes % 8.1 Eosinophils % 3.4 Basophils % 0.7 Absolute Neutrophils 4.3 Absolute Lymphocytes 2.0 Absolute Monocytes 0.6 Absolute Eosinophils 0.2 Absolute Basophils 0.1 PT INR APTT Sodium 141.5 Potassium 4.2 Chloride 109 H Carbon Dioxide 23 Anion Gap 10 BUN 14 Creatinine 1.11 Est GFR ( Amer) > 60 Est GFR (Non-Af Amer) > 60 Glucose 96 POC Glucose Hemoglobin A1c % Calcium 8.9 Total Bilirubin Direct Bilirubin Indirect Bilirubin Neonat Total Bilirubin AST ALT Alkaline Phosphatase Creatine Kinase 339 H CK-MB (CK-2) 2.83 Troponin I < 0.012 Total Protein Albumin Triglycerides 189 H Cholesterol 176.95 LDL Cholesterol Direct 90 VLDL Cholesterol 37.8 H HDL Cholesterol 44 TSH Free T4 09/06/16 09/06/16 09/06/16 04:28 10:35 10:35 WBC RBC Hgb Hct MCV MCH MCHC RDW Plt Count Seg Neutrophils % Lymphocytes % Monocytes % Eosinophils % Basophils % Absolute Neutrophils Absolute Lymphocytes Absolute Monocytes Absolute Eosinophils Absolute Basophils PT INR APTT Sodium Potassium Chloride Carbon Dioxide Anion Gap BUN Creatinine Est GFR ( Amer) Est GFR (Non-Af Amer) Glucose POC Glucose Hemoglobin A1c % 5.3 Calcium Total Bilirubin Direct Bilirubin Indirect Bilirubin Neonat Total Bilirubin AST ALT Alkaline Phosphatase Creatine Kinase 325 H CK-MB (CK-2) 2.61 Troponin I < 0.012 Total Protein Albumin Triglycerides Cholesterol LDL Cholesterol Direct VLDL Cholesterol HDL Cholesterol TSH Free T4 09/06/16 09/06/16 16:30 16:30 WBC RBC Hgb Hct MCV MCH MCHC RDW Plt Count Seg Neutrophils % Lymphocytes % Monocytes % Eosinophils % Basophils % Absolute Neutrophils Absolute Lymphocytes Absolute Monocytes Absolute Eosinophils Absolute Basophils PT INR APTT Sodium Potassium Chloride Carbon Dioxide Anion Gap BUN Creatinine Est GFR ( Amer) Est GFR (Non-Af Amer) Glucose POC Glucose Hemoglobin A1c % Calcium Total Bilirubin Direct Bilirubin Indirect Bilirubin Neonat Total Bilirubin AST ALT Alkaline Phosphatase Creatine Kinase 296 H CK-MB (CK-2) 2.34 Troponin I < 0.012 Total Protein Albumin Triglycerides Cholesterol LDL Cholesterol Direct VLDL Cholesterol HDL Cholesterol TSH Free T4 Impressions: Chest X-Ray 09/05/16 21:34 IMPRESSION: NO ACUTE RADIOGRAPHIC FINDING IN THE CHEST. Head CT 09/05/16 21:34 IMPRESSION: NORMAL BRAIN CT WITHOUT CONTRAST. Carotid Doppler Study 09/06/16 00:00 IMPRESSION: NO HEMODYNAMICALLY SIGNIFICANT STENOSIS. Head MRI 09/06/16 00:00 IMPRESSION: FOCAL AREA OF RESTRICTED DIFFUSION IN THE LEFT POSTERIOR PARIETAL LOBE CONSISTENT WITH ACUTE INFARCT. EVIDENCE OF ACUTE STROKE: YES. LEFT MCA. Qualifiers PATEINT BEING DISCHARGED WITH ANY OF THE FOLLOWING DIAGNOSIS?: Stroke VTE patient discharged on overlapping Therapy?: Yes Stroke Pt being discharged on Anti-thrombolytic therapy?: Yes Stroke Pt being discharged on Anti-coagulation therapy?: No Reason(s) for not prescribing Anti-coagulation therapy:: Not indicated Stroke Pt being discharged on Statins?: No Reason(s) for not prescribing Statins therapy:: Not indicated Plan Discharge Plan: Increase aspirin to 325 mg daily. Increase Synthroid to 200 mcg daily. Follow- up with primary care provider for TSH in 3 weeks. Follow-up with cardiology at the [facility] in [place] for outpatient event monitor. Follow-up with outpatient PT/OT. Time Spent: Less than 30 Minutes
[2016-09-07] MEDS ORDERED: ONDANSETRON 4 MG TAB.RAPDIS ONE (14:14)
== END 2016-09-07 14:20 | disposition home or self-care (01) | DRG 65 ==
LOC: ER 21:30 → EH 23:16 → UNDOADMIN 23:34 → EH 23:34 → 3W 09-06 01:57
PROVIDERS: ADMIT Internal Medicine; ATTEND Internal Medicine
DX: I63.412 Cerebral infarction due to embolism of left middle cerebral artery (principal); G81.91 Hemiplegia, unspecified affecting right dominant side; R47.01 Aphasia; R47.89 Other speech disturbances; I50.9 Heart failure, unspecified; I25.10 Atherosclerotic heart disease of native coronary artery without angina pectoris; I11.0 Hypertensive heart disease with heart failure; E03.9 Hypothyroidism, unspecified; B18.2 Chronic viral hepatitis C; G47.33 Obstructive sleep apnea (adult) (pediatric); E66.9 Obesity, unspecified; Z68.38 Body mass index [BMI] 38.0-38.9, adult; Z79.82 Long term (current) use of aspirin
CPT/HCPCS: 36415; 70450; 70551; 71010; 80048; 80053; 80061; 82550; 82553; 82962; 83036; 84439; 84443; 84484; 85025; 85610; 85730; 93005; 93010; 93306; 93880; 94660; 99291; J1644; J3490; S0119

== ENCOUNTER 2017-11-10 17:09 | Emergency (ER) | payer MEDICARE, OTHER ==
[2017-11-10] MEDS ORDERED: KETOROLAC TROMETHAMINE 60 MG/2 ML SDV IM ONE (18:20)
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
--- NOTE | 2017-11-10 18:59 | RADIOLOGY REPORT (SQ) ---
EXAM DESCRIPTION: CT HEAD WITHOUT COMPLETED DATE/TIME: 11/10/2017 6:43 pm REASON FOR STUDY: Head injury COMPARISON: 09/06/2016 TECHNIQUE: Axial images acquired through the brain without intravenous contrast. Images reviewed wi th bone, brain and subdural windows. Images stored on PACS. All CT scanners at this facility use dose modulation, iterative reconstruction, and/or weight based d osing when appropriate to reduce radiation dose to as low as reasonably achievable (ALARA). [facility]: Dose Right [facility]: CareDose [facility]: Dose Right [facility]: Teradose 4D [facility]: Smart Trunk Archive RADIATION DOSE: CT Rad equipment meets quality standard of care and radiation dose reduction techniq ues were employed. CTDIvol: 53.2 mGy. DLP: 1070 mGy-cm. mGy. LIMITATIONS: None. FINDINGS: VENTRICLES: Normal. CEREBRUM: No masses. No hemorrhage. No midline shift. Areas of low density in the white matter mos t likely due to chronic micro-vascular ischemic change. No evidence for acute infarction. CEREBELLUM: No masses. No hemorrhage. No alteration of density. No evidence for acute infarction. EXTRAAXIAL SPACES: Mild age-related involutional change. No fluid collections. No masses. ORBITS AND GLOBE: No intra- or extraconal masses. Normal contour of globe without masses. CALVARIUM: No fracture. PARANASAL SINUSES: No fluid or mucosal thickening. SOFT TISSUES: No mass or hematoma. OTHER: No other significant finding. IMPRESSION: No acute intracranial findings. EVIDENCE OF ACUTE STROKE: NO. TECHNICAL DOCUMENTATION: JOB ID: [id number] [place]-72 Quality ID # [id number]: Final reports with documentation of one or more dose reduction techniques (e.g., Au tomated exposure control, adjustment of the mA and/or kV according to patient size, use of iterative reconstruction technique) 2010 [employer]- All Rights Reserved Reading location - IP/workstation name: [email or web address]
--- NOTE | 2017-11-10 19:02 | RADIOLOGY REPORT (SQ) ---
EXAM DESCRIPTION: CT CERVICAL SPINE WITHOUT COMPLETED DATE/TIME: 11/10/2017 6:43 pm REASON FOR STUDY: Neck injury COMPARISON: None. TECHNIQUE: Axial images acquired through the cervical spine without intravenous contrast. Images re viewed with lung, soft tissue and bone windows. Reconstructed coronal and sagittal MPR images review ed. Images stored on PACS. All CT scanners at this facility use dose modulation, iterative reconstruction, and/or weight based d osing when appropriate to reduce radiation dose to as low as reasonably achievable (ALARA). [facility]: Dose Right [facility]: CareDose [facility]: Dose Right [facility]: Teradose 4D [facility]: Smart Technologies RADIATION DOSE: CT Rad equipment meets quality standard of care and radiation dose reduction techniq ues were employed. CTDIvol: 34.8 mGy. DLP: 758 mGy-cm. mGy. LIMITATIONS: None. FINDINGS: ALIGNMENT: Anatomic. MINERALIZATION: Normal. VERTEBRAL BODIES: No fractures or dislocation. DISCS: Multilevel disc space narrowing with osteophytes. FACETS, LATERAL MASSES, POSTERIOR ELEMENTS: Facet arthropathy. No fractures. No dislocation. No ac nikolski findings. HARDWARE: None in the spine. VISUALIZED RIBS: No fractures. LUNG APICES AND SOFT TISSUES: No significant or acute findings. OTHER: No other significant finding. IMPRESSION: CHRONIC DEGENERATIVE CHANGES. NO ACUTE FINDINGS. TECHNICAL DOCUMENTATION: JOB ID: [id number] [place]-72 Quality ID # [id number]: Final reports with documentation of one or more dose reduction techniques (e.g., Au tomated exposure control, adjustment of the mA and/or kV according to patient size, use of iterative reconstruction technique) 2010 [employer]- All Rights Reserved Reading location - IP/workstation name: [email or web address]
[2017-11-10 19:24] VITALS: BP 138/88
== END 2017-11-10 19:27 | disposition home or self-care (01) ==
LOC: ER 17:09
DX: S13.9XXA Sprain of joints and ligaments of unspecified parts of neck, initial encounter (principal); S09.90XA Unspecified injury of head, initial encounter; W01.190A Fall on same level from slipping, tripping and stumbling with subsequent striking against furniture, initial encounter; M47.9 Spondylosis, unspecified; E66.9 Obesity, unspecified; Z68.38 Body mass index [BMI] 38.0-38.9, adult; I25.10 Atherosclerotic heart disease of native coronary artery without angina pectoris; I10 Essential (primary) hypertension; Z95.1 Presence of aortocoronary bypass graft
CPT/HCPCS: 99283; 96372; 70450; 72125; J1885

== ENCOUNTER 2018-03-24 11:35 | Observation (INO) | payer MEDICARE, OTHER ==
--- NOTE | 2018-03-24 12:06 | ER Document Report ---
ED General - General Stated Complaint: HEAD INJURY Time Seen by Provider: 03/24/18 11:59 TRAVEL OUTSIDE OF THE [place] IN LAST 30 DAYS: No - HPI Notes: Patient is a 67-year-old male that presents to the emergency department for chief complaint of confusion. Patient presented by EMS for acute confusion and concern of stroke. He was in a car with family and started acting confused around 7 AM this morning. Family reported to EMS that he was unable to tell them what time it was and appeared confused to date. Patient has no residual deficits left from previous strokes. Family not currently present and HPI is provided by EMS report, EMS also not present currently. Patient is confused and not sure how he got to the emergency room. He does not remember being in the back of an ambulance. He currently states he feels fine and has no complaints. He denies feeling any numbness, weakness, chest pain, shortness of breath, and vision changes. Past Medical History: TIA, hypothyroidism Past Surgical History: Reviewed in chart Social History: reviewed in chart Family History: Reviewed and noncontributory for presenting illness Allergies: Reviewed, see documented allergy list. REVIEW OF SYSTEMS: CONSTITUTIONAL : No fever No chills No diaphoresis No recent illness EENT: No vision changes No congestion No sore throat CARDIOVASCULAR: No chest pain No palpitations RESPIRATORY: No shortness of breath No cough No difficulty breathing GASTROINTESTINAL: No abdominal pain No nausea No vomiting No diarrhea GENITOURINARY: No dysuria No hematuria No difficulty urinating MUSCULOSKELETAL: No back pain No leg pain No arm pain SKIN: No rashes No lesions LYMPHATIC: No swollen, enlarged glands. NEUROLOGICAL: No lightheadedness No headache No weakness No paresthesias Confusion PSYCHIATRIC: No anxiety No depression PHYSICAL EXAMINATION: Vital signs reviewed, nursing noted reviewed. GENERAL: Well-appearing, well-nourished and in no acute distress. HEAD: Atraumatic, normocephalic. EYES: Eyes appear normal, extraocular movements intact, sclera anicteric, conjunctiva are normal. ENT: nares patent, oropharynx clear without exudates. Moist mucous membranes. NECK: Normal range of motion, supple without lymphadenopathy LUNGS: Breath sounds clear to auscultation bilaterally and equal. No wheezes rales or rhonchi. HEART: Regular rate and rhythm without murmurs ABDOMEN: Soft, nontender, normoactive bowel sounds. No rebound, guarding, or rigidity. No masses appreciated. EXTREMITIES: Nontender, good range of motion, no pitting or edema. NEUROLOGICAL: Oriented to person and place, disoriented to time, NIH 2, Moves all extremities spontaneously Motor and sensory grossly intact on exam. PSYCH: Normal mood, normal affect. SKIN: Warm, Dry, normal turgor, no rashes or lesions noted on exposed skin - Related Data Allergies/Adverse Reactions: No Known Allergies Allergy (Verified 11/10/17 18:11) Past Medical History - Social History Smoking Status: Never Smoker Family History: None, CVA, DM - Past Medical History Cardiac Medical History: Reports: Hx Congestive Heart Failure, Hx Coronary Artery Disease, Hx Hypertension Endocrine Medical History: Reports: Hx Hypothyroidism Renal/ Medical History: Denies: Hx Peritoneal Dialysis Musculoskeletal Medical History: Reports Hx Arthritis Psychiatric Medical History: Denies: Hx Depression Past Surgical History: Reports: Hx Cardiac Surgery, Hx Coronary Artery Bypass Graft Course - Re-evaluation Re-evalutation: 03/24/18 12:10 Vitals reviewed. Nursing notes reviewed. Patient's onset of symptoms was 5 hours ago making him not a candidate for TPA. He does have acute confusion and is inside the window for clot retrieval therefore CTA of the head and cervical spine will be ordered. 03/24/18 13:39 CTA head and cervical spine showed no acute clot nontoxic or other process. On reevaluation patient is still confused to time. His lab work is unremarkable. He is with no leukocytosis or other signs of infection as a cause of his acute mental status change. I am suspicious of a stroke. Patient was given aspirin in the ED. He will be admitted to the hospital for further management. Case discussed with Dr. Stiles who accepted admission. Patient's family and patient in agreement with plan of care. Repeat NIH is unchanged at 1340 compared to at presentation. Laboratory 03/24/18 03/24/18 03/24/18 11:45 12:47 12:47 WBC 5.1 RBC 4.66 Hgb 14.6 Hct 42.5 MCV 91 MCH 31.3 MCHC 34.4 RDW 13.8 Plt Count 184 Seg Neutrophils % 56.8 Lymphocytes % 32.4 Monocytes % 7.7 Eosinophils % 2.3 Basophils % 0.8 Absolute Neutrophils 2.9 Absolute Lymphocytes 1.7 Absolute Monocytes 0.4 Absolute Eosinophils 0.1 Absolute Basophils 0.0 PT 13.4 INR 0.97 APTT 31.3 Sodium Potassium Chloride Carbon Dioxide Anion Gap BUN Creatinine Est GFR ( Amer) Est GFR (Non-Af Amer) Glucose POC Glucose 106 Calcium Total Bilirubin Direct Bilirubin Neonat Total Bilirubin Neonat Direct Bilirubin Neonat Indirect Bili AST ALT Alkaline Phosphatase Troponin I Total Protein Albumin 03/24/18 03/24/18 12:47 12:47 WBC RBC Hgb Hct MCV MCH MCHC RDW Plt Count Seg Neutrophils % Lymphocytes % Monocytes % Eosinophils % Basophils % Absolute Neutrophils Absolute Lymphocytes Absolute Monocytes Absolute Eosinophils Absolute Basophils PT INR APTT Sodium 144.8 Potassium 4.2 Chloride 107 Carbon Dioxide 28 Anion Gap 10 BUN 19 Creatinine 1.21 Est GFR ( Amer) > 60 Est GFR (Non-Af Amer) > 60 Glucose 93 POC Glucose Calcium 9.1 Total Bilirubin 0.5 Direct Bilirubin 0.2 Neonat Total Bilirubin Not Reportable Neonat Direct Bilirubin Not Reportable Neonat Indirect Bili Not Reportable AST 19 ALT 21 Alkaline Phosphatase 48 Troponin I < 0.012 Total Protein 6.6 Albumin 4.2 Chest X-Ray 03/24/18 12:04 IMPRESSION: NO ACUTE RADIOGRAPHIC FINDING IN THE CHEST. Head CT 03/24/18 12:04 IMPRESSION: No acute intracranial pathology. Unchanged encephalomalacia of the left parietal lobe. EVIDENCE OF ACUTE STROKE: NO. Head CTA 03/24/18 12:06 IMPRESSION: NO CTA EVIDENCE OF STENOSIS OR ANEURYSM OF THE GRINDSTONE OF GA[place]. Neck CTA 03/24/18 12:06 IMPRESSION: Technical limitations. No significant stenosis of the carotid arteries. 03/24/18 13:42 - Laboratory Result Diagrams: 03/24/18 12:47 03/24/18 12:47 - EKG Interpretation by Me Additional EKG results interpreted by me: 03/24/18 12:41 Interpreted by myself 1233: Normal sinus rhythm, rate 59, normal axis, no ectopy, no STEMI Discharge - Discharge Clinical Impression: Stroke-like symptoms, Acute confusion Condition: Stable Disposition: ADMITTED INPATIENT Admitting Provider: Hospitalist Unit Admitted: Telemetry ED NIH Stroke Scale - NIH Stroke Scale When completed:: Before Alteplase *: 1. NIH scale should be completed with appropriate accompanying assessment tools. *: 2. The NIH should reflect what the patient is capable of doing and should not be coached by the clinician. 1a. Level of Consciousness: 0=Alert;keenly responsive -: 1=Drowsy -: 2=Obtunded -: 3=Coma/unresponsive or reflex to noxious stimuli. 1a. Responses: 0 1b. Orientation Questions: a. What month is it? -: b. How old are you? -: 0=Answers both questions correctly. -: 1=Answers one question correctly or patient is intubated or has orotracheal trauma. -: 2=Answers neither question correctly. 1b. Responses: 2 1c. Response to commands: a. Open and close eyes? -: b. Lower In Supervisor and release hand? -: Credit is given despite weakness. Demonstration of task is permitted. Substitute command if hands cannot be used. -: 0=Performs both tasks correctly -: 1=Performs one task correctly -: 2=Performs neither task correctly 1c. Responses: 0 2. Gaze: Establish eye contact and instruct patient to "Follow my finger" -: 0=Normal -: 1=Partial gaze palsy. Gaze is abnormal in one or both eyes, but where forced deviation or total gaze paresis is not present. -: 2=Forced deviation or total gaze paresis. 2. Responses: 0 3. Visual Dias: Sees fingers in all four quadrants. -: 0=No visual loss. -: 1=Partial hemianopsia. -: 2=Complete hemianopsia. -: 3=Bilateral hemianopsia (including Cortical blindness) 3. Responses: 0 4. Facial Movement: Instruct patient to: -: a. Show me your teeth -: b. Raise your eyebrows -: c. Close your eyes -: d. Smile -: 0=Normal symmetrical movement -: 1=Minor paralysis (flattened nasolabial fold, asymmetry on smiling). -: 2=Partial paralysis (total or near total paralysis of lower face). -: 3=Complete paralysis of upper and lower face 4. Responses: 0 5. Motor functions (left arm): Alternate sides and extend each arm with palms down (90 degrees if sitting or 45 degrees for supine). -: 0=No drift;limb holds for full 10 seconds. -: 1=Drift; limb holds but drifts down before full 10 seconds, but does not hit bed. -: 2=Some effort against gravity; limb cannot get to or maintain position. -: 3=No effort against gravity; limb falls. -: 4=No movement. -: UN=Amputation, joint fusion, explain in comments. 5. Responses (left arm): 0 5. Motor Functions (right arm): Alternate sides and extend each arm with palms down (90 degrees if sitting or 45 degrees for supine). -: 0=No drift;limb holds for full 10 seconds. -: 1=Drift; limb holds but drifts down before full 10 seconds, but does not hit bed. -: 2=Some effort against gravity; limb cannot get to or maintain position. -: 3=No effort against gravity; limb falls. -: 4=No movement. -: UN=Amputation, joint fusion, explain in comments. 5. Responses (right arm): 0 6. Motor Functions (left leg): With patient lying supine, alternate sides and extend each leg (30 degrees always while supine). -: 0=No drift, leg holds position for full 5 seconds -: 1=Drift; leg falls before full 5 seconds but does not hit bed. -: 2=Some effort against gravity, leg falls to bed but some effort against gravity. -: 3=No effort against gravity, leg falls to bed immediately. -: 4=No movement. -: UN=Amputation, joint fusion; explain in comments. 6. Responses (left leg): 0 6. Motor Functions (right leg): With patient lying supine, alternate sides and extend each leg (30 degrees always while supine). -: 0=No drift, leg holds position for full 5 seconds -: 1=Drift; leg falls before full 5 seconds but does not hit bed. -: 2=Some effort against gravity, leg falls to bed but some effort against gravity. -: 3=No effort against gravity, leg falls to bed immediately. -: 4=No movement. -: UN=Amputation, joint fusion; explain in comments. 6. Responses (right leg): 0 7. Limb Ataxia: With eyes open instruct patient to: -: a. "Touch your finger to your nose". -: b. "Touch your heel to your morgan" -: 0=Absent -: 1=Present in one limb. -: 2=Present in two limbs. -: UN=Amputation or joint fusion; explain in comments. 7. Responses: 0 8. Sensory: Test sensation using pinprick or noxious stimuli. Test as many body parts as possible. -: 0=Normal;no sensory loss -: 1=Mile to moderate sensory loss (patient feels pin prick but is less sharp on affected side). -: 2=Severe or total sensory loss. 8. Responses: 0 9. Best Language: Instruct patient to: -: a. "Describe what you see in this picture." -: b. "Name the items in this picture." -: c. "Read these sentences." -: 0=No aphasia, normal -: 1=Mild to moderate aphasia. -: 2=Severe aphasia -: 3=Mute, global aphasia, no usable speech or auditory comprehension. 9. Responses: 0 10. Articulation, Dysarthia: Instruct patient to: -: "Read these words" or "Repeat these words" -: 0=Normal -: 1=Mild to moderate; patient may slur some words but can be understood without difficulty. -: 2=Severe; patients speech so slurred as to be unintelligible in the absence of dysphasia. -: UN=Intubated or other physical barrier, explain in comments. 10. Responses: 0 11. Extinction or inattention: 0=No abnormality -: 1= Visual, tactile, auditory, spatial, or personal inattention or extinction to bilateral simulation in one or the sensory modalities. -: 2=Profound lisa-inattention or lisa-inattention to more than one modality; d oes not recognize own hand. 11. Responses: 0 Total Score: 2
--- NOTE | 2018-03-24 12:23 | RADIOLOGY REPORT (SQ) ---
EXAM DESCRIPTION: CT HEAD WITHOUT COMPLETED DATE/TIME: 03/24/2018 12:13 pm REASON FOR STUDY: confusion COMPARISON: 11/10/2017 TECHNIQUE: Axial images acquired through the brain without intravenous contrast. Images reviewed wi th bone, brain and subdural windows. Additional sagittal and coronal reconstructions were generated. Images stored on PACS. All CT scanners at this facility use dose modulation, iterative reconstruction, and/or weight based d osing when appropriate to reduce radiation dose to as low as reasonably achievable (ALARA). [facility]: Dose Right [facility]: CareDose [facility]: Dose Right [facility]: Teradose 4D [facility]: iDiDiD RADIATION DOSE: 1096 mGy cm LIMITATIONS: None. FINDINGS: VENTRICLES: Normal size and contour. CEREBRUM: No masses. No hemorrhage. No midline shift. No evidence for acute infarction. Unchanged encephalomalacia of the left parietal lobe. CEREBELLUM: No masses. No hemorrhage. No alteration of density. No evidence for acute infarction. EXTRAAXIAL SPACES: No fluid collections. No masses. ORBITS AND GLOBE: No intra- or extraconal masses. Normal contour of globe without masses. CALVARIUM: No fracture. PARANASAL SINUSES: No fluid or mucosal thickening. SOFT TISSUES: No mass or hematoma. OTHER: No other significant finding. IMPRESSION: No acute intracranial pathology. Unchanged encephalomalacia of the left parietal lobe. EVIDENCE OF ACUTE STROKE: NO. COMMENT: Quality ID # 436: Final reports with documentation of one or more dose reduction techniques (e.g., Automated exposure control, adjustment of the mA and/or kV according to patient size, use of iterative reconstruction technique) TECHNICAL DOCUMENTATION: JOB ID: [id number] [employer]- All Rights Reserved Reading location - IP/workstation name: [email or web address]
--- NOTE | 2018-03-24 12:46 | EKG REPORT ---
SEVERITY:- NORMAL ECG - SINUS RHYTHM : Confirmed by: Katherine Hummel 24-Mar-2018 12:45:51
--- NOTE | 2018-03-24 12:48 | RADIOLOGY REPORT (SQ) ---
EXAM DESCRIPTION: CTA HEAD COMPLETED DATE/TIME: 03/24/2018 12:33 pm REASON FOR STUDY: confusion COMPARISON: None. TECHNIQUE: Post IV contrast scanning, thin section axial imaging through the brain to evaluate the a rterial structures. Source and MIP images are saved and reviewed on PACS. Advanced 3D imaging as volume-rendering, MIPs, SSD performed? yes All CT scanners at this facility use dose modulation, iterative reconstruction, and/or weight based d osing when appropriate to reduce radiation dose to as low as reasonably achievable (ALARA). [facility]: Dose Right [facility]: CareDose [facility]: Dose Right [facility]: Teradose 4D [facility]: Smartaxi CONTRAST TYPE AND DOSE: contrast/concentration: Isovue 350.00 mg/ml; Total Contrast Delivered: 70.0 ml; Total Saline Delivered: 50.0 ml RENAL FUNCTION: Not obtained. LIMITATIONS: None. FINDINGS: [place] OF [place]: The anterior, middle, posterior cerebral arteries are all patent. No ev idence of aneurysm or focal stenosis. POSTERIOR CIRCULATION: The distal vertebral arteries are patent as is the basilar artery. No aneurysm . BRAIN: No enhancing lesions. BONES: Intact as visualized. SINUSES: No fluid or mucosal thickening. OTHER: No other significant finding. IMPRESSION: NO CTA EVIDENCE OF STENOSIS OR ANEURYSM OF THE [place] OF [place]. TECHNICAL DOCUMENTATION: JOB ID: [id number] Quality ID # [id number]: Final reports with documentation of one or more dose reduction techniques (e.g., Au tomated exposure control, adjustment of the mA and/or kV according to patient size, use of iterative reconstruction technique) 2010 [employer]- All Rights Reserved Reading location - IP/workstation name: [email or web address]
--- NOTE | 2018-03-24 12:58 | RADIOLOGY REPORT (SQ) ---
EXAM DESCRIPTION: CTA NECK COMPLETED DATE/TIME: 03/24/2018 12:33 pm REASON FOR STUDY: confusion COMPARISON: None. TECHNIQUE: Axial dynamic scanning technique with dynamic contrast enhancement through the extra-crab fisher nial carotid and vertebral arteries. Multiplanar reconstruction. 3-D MIPS and Volume-rendered imag es acquired at the workstation and saved to PACS. Images are reviewed in soft tissue, bone, lung w indows. All CT scanners at this facility use dose modulation, iterative reconstruction, and/or weight based d osing when appropriate to reduce radiation dose to as low as reasonably achievable (ALARA). [facility]: Dose Right [facility]: CareDose [facility]: Dose Right [facility]: Teradose 4D [facility]: [employer] CONTRAST TYPE AND DOSE: See separate report of the same date. RENAL FUNCTION: See separate report of same date. LIMITATIONS: Timing of contrast FINDINGS: AORTIC ARCH: Bovine arch anatomic variant. Bilateral subclavian arteries are patent. No dissection. RIGHT CAROTIDS: Hypopharyngeal loop distal common carotid anatomic variant. Patent common, internal and external carotid arteries without suggestion of significant stenosis or irregular plaque. No dis section. RIGHT VERTEBRAL: Limited visualization. LEFT CAROTIDS: Hypopharyngeal loop distal common carotid anatomic variant.Patent common, internal and external carotid arteries without suggestion of significant stenosis or irregular plaque. No dissec tion. LEFT VERTEBRAL: Limited visualization. OTHER: No other significant finding. OTHER: 3-D reconstructions confirm findings. IMPRESSION: Technical limitations. No significant stenosis of the carotid arteries. COMMENT: Quality ID #[id number]: Measurements of distal internal carotid diameter were used as the denomina tor for stenosis measurement. TECHNICAL DOCUMENTATION: JOB ID: [id number] Quality ID # [id number]: Final reports with documentation of one or more dose reduction techniques (e.g., Au tomated exposure control, adjustment of the mA and/or kV according to patient size, use of iterative reconstruction technique) 2010 [employer]- All Rights Reserved Reading location - IP/workstation name: [email or web address]
[2018-03-24 13:08] LABS: INTERNATIONAL RATION (INR) 0.97; PARTIAL THROMBOPLASTIN TIME 31.3 SEC (23.5-35.8); PROTHROMBIN TIME 13.4 SEC (11.4-15.4)
[2018-03-24 13:10] LABS: ABSOLUTE EOSINOPHILS # (AUTO) 0.1 10^3/uL (0.0-0.6); ABSOLUTE LYMPHOCYTES (AUTO) 1.7 10^3/uL (0.5-4.7); ABSOLUTE MONOCYTES (AUTO) 0.4 10^3/uL (0.1-1.4); ABSOLUTE NEUT (AUTO) 2.9 10^3/uL (1.7-8.2); BASOPHILS % (AUTO) 0.8 % (0-2); EOSINOPHILS % (AUTO) 2.3 % (0-6); HEMATOCRIT 42.5 % (37.9-51.0); HEMOGLOBIN 14.6 g/dL (13.5-17.0); LYMPHOCYTES % (AUTO) 32.4 % (13-45); MEAN CORPUSCULAR HEMOGLOBIN 31.3 pg (27.0-33.4); MEAN CORPUSCULAR HGB CONC 34.4 g/dL (32.0-36.0); MEAN CORPUSCULAR VOLUME 91 fl (80-97); MONOCYTES % (AUTO) 7.7 % (3-13); PLATELET COUNT 184 10^3/uL (150-450); RED BLOOD COUNT 4.66 10^6/uL (4.35-5.55); RED CELL DISTRIBUTION WIDTH 13.8 % (11.5-14.0); SEGMENTED NEUTROPHILS % (AUTO) 56.8 % (42-78); TOTAL CELLS COUNTED % (AUTO) 100 %; WHITE BLOOD COUNT 5.1 10^3/uL (4.0-10.5)
--- NOTE | 2018-03-24 13:14 | RADIOLOGY REPORT (SQ) ---
EXAM DESCRIPTION: CHEST SINGLE VIEW COMPLETED DATE/TIME: 03/24/2018 12:49 pm REASON FOR STUDY: confusion COMPARISON: 09/05/2016 EXAM PARAMETERS: NUMBER OF VIEWS: One view. TECHNIQUE: Single frontal radiographic view of the chest acquired. RADIATION DOSE: NA LIMITATIONS: AP portable. Positioning. FINDINGS: LUNGS AND PLEURA: No opacities, masses or pneumothorax. No pleural effusion. MEDIASTINUM AND HILAR STRUCTURES: No masses. Contour normal. HEART AND VASCULAR STRUCTURES: Heart normal in size. Normal vasculature. BONES: No acute findings. HARDWARE: CABG. OTHER: No other significant finding. IMPRESSION: NO ACUTE RADIOGRAPHIC FINDING IN THE CHEST. TECHNICAL DOCUMENTATION: JOB ID: [id number] [employer] All Rights Reserved Reading location - IP/workstation name: [email or web address]
[2018-03-24 13:29] LABS: ALANINE AMINOTRANSFERASE 21 U/L (21-72); ALBUMIN 4.2 g/dL (3.5-5.0); ALKALINE PHOSPHATASE 48 U/L (38-126); ANION GAP 10 (5-19); ASPARTATE AMINO TRANSFERASE 19 U/L (17-59); BILIRUBIN,DIRECT 0.2 mg/dL (0.0-0.4); BILIRUBIN,TOTAL 0.5 mg/dL (0.2-1.3); BLOOD UREA NITROGEN 19 mg/dL (7-20); CALCIUM 9.1 mg/dL (8.4-10.2); CARBON DIOXIDE 28 mmol/L (22-30); CHLORIDE 107 mmol/L (98-107); GLUCOSE 93 mg/dL (75-110); POTASSIUM 4.2 mmol/L (3.6-5.0); SODIUM 144.8 mmol/L (137-145); TOTAL PROTEIN 6.6 g/dL (6.3-8.2)
[2018-03-24] MEDS ORDERED: ASPIRIN 325 MG TABLET PO ONE (13:41)
[2018-03-24] MEDS ORDERED: ACETAMINOPHEN 325 MG TABLET PO PRN (14:56)
[2018-03-24] MEDS ORDERED: DOCUSATE SODIUM 100 MG CAPSULE PO PRN (14:56)
[2018-03-24] MEDS ORDERED: HYDROCODONE/ACETAMINOPHEN 5-325 MG TABLET PO PRN (14:56)
[2018-03-24] MEDS ORDERED: ONDANSETRON HCL INJ/PF 4 MG/2 ML SDV IV PRN (14:56)
--- NOTE | 2018-03-24 14:56 | PDOC H&P ---
History of Present Illness Admission Date/PCP: 03/24/18 13:[facility] Patient complains of: confusion History of Present Illness: KAMERON WILSON is a 67 year old male hypertension hyperlipidemia coronary artery disease status post bypass, hypothyroidism, chronic back pains, previous history of stroke 1 year ago brought to the emergency room by his after she found him confused and unable to remember things so she decided to bring him to the hospital for further evaluation. The workup was done by ER physician Dr. Sawyer CT head was negative CTA of the head was negative. I went to see the patient patient is alert and awake oriented communicating very well. is at bedside. He denies any headaches nausea vomiting diarrhea constipation no light headedness no dizziness no falls this morning. Patient does not remember exactly what happened. The told me she looks confused and difficulty in remembering things. Explained to the family and the patient that I am going to put him in the hospital and had to do the MRI of the brain without contrast. Past Medical History Cardiac Medical History: Reports: Congestive Heart Failure, Coronary Artery Disease, Hypertension Endocrine Medical History: Reports: Hypothyroidism Musculoskeltal Medical History: Reports: Arthritis Psychiatric Medical History: Denies: Depression Past Surgical History Past Surgical History: Reports: Coronary Artery Bypass Graft Social History Smoking Status: Former Smoker Frequency of Alcohol Use: None Hx Recreational Drug Use: No Drugs: None Hx Prescription Drug Abuse: No - Advance Directive Resuscitation Status: Full Code Family History Family History: None, CVA, DM Parental Family History Reviewed: Yes Children Family History Reviewed: Yes Sibling(s) Family History Reviewed.: Yes Medication/Allergy Allergies/Adverse Reactions: No Known Allergies Allergy (Verified 11/10/17 18:11) Review of Systems Constitutional: ABSENT: fever(s), headache(s), night sweats, weakness Eyes: ABSENT: visual disturbances Ears: ABSENT: hearing changes Cardiovascular: ABSENT: chest pain, dyspnea on exertion, edema, orthropnea, palpitations Gastrointestinal: ABSENT: abdominal pain, constipation, diarrhea, hematemesis, hematochezia, nausea, vomiting Integumentary: ABSENT: rash, wounds Neurological: PRESENT: confusion, memory loss Psychiatric: ABSENT: anxiety, depression, homidical ideation, suicidal ideation Physical Exam General appearance: PRESENT: no acute distress Head exam: PRESENT: atraumatic Eye exam: PRESENT: PERRLA Mouth exam: PRESENT: moist, tongue midline Neck exam: ABSENT: carotid bruit, JVD, lymphadenopathy, thyromegaly Respiratory exam: PRESENT: clear to auscultation [place]. ABSENT: rales, rhonchi, wheezes Cardiovascular exam: PRESENT: RRR. ABSENT: diastolic murmur, rubs, systolic murmur GI/Abdominal exam: PRESENT: normal bowel sounds, soft. ABSENT: distended, guarding, mass, organolmegaly, rebound, tenderness Extremities exam: PRESENT: full ROM. ABSENT: calf tenderness, clubbing, pedal edema Neurological exam: PRESENT: alert, awake, oriented to person, oriented to place, oriented to time, oriented to situation, CN II-XII grossly intact. ABSENT: motor sensory deficit Psychiatric exam: PRESENT: appropriate affect, normal mood. ABSENT: homicidal ideation, suicidal ideation Results Laboratory Results: 03/24/18 12:47 03/24/18 12:47 03/24/18 03/24/18 12:47 12:47 WBC 5.1 RBC 4.66 Hgb 14.6 Hct 42.5 MCV 91 MCH 31.3 MCHC 34.4 RDW 13.8 Plt Count 184 Seg Neutrophils % 56.8 Lymphocytes % 32.4 Monocytes % 7.7 Eosinophils % 2.3 Basophils % 0.8 Absolute Neutrophils 2.9 Absolute Lymphocytes 1.7 Absolute Monocytes 0.4 Absolute Eosinophils 0.1 Absolute Basophils 0.0 Sodium 144.8 Potassium 4.2 Chloride 107 Carbon Dioxide 28 Anion Gap 10 BUN 19 Creatinine 1.21 Est GFR ( Amer) > 60 Est GFR (Non-Af Amer) > 60 Glucose 93 Calcium 9.1 Total Bilirubin 0.5 AST 19 ALT 21 Alkaline Phosphatase 48 Total Protein 6.6 Albumin 4.2 03/24/18 12:47 Troponin I < 0.012 Impressions: Chest X-Ray 03/24/18 12:04 IMPRESSION: NO ACUTE RADIOGRAPHIC FINDING IN THE CHEST. Head CT 03/24/18 12:04 IMPRESSION: No acute intracranial pathology. Unchanged encephalomalacia of the left parietal lobe. EVIDENCE OF ACUTE STROKE: NO. Head CTA 03/24/18 12:06 IMPRESSION: NO CTA EVIDENCE OF STENOSIS OR ANEURYSM OF THE [place]. Neck CTA 03/24/18 12:06 IMPRESSION: Technical limitations. No significant stenosis of the carotid arteries. Assessment & Plan - Diagnosis (1) Transient ischemic attack Is this a current diagnosis for this admission?: Yes Plan: 03/24/[id number]-oqgy-old male admitted for confusion and memory loss for a short while which was resolved. He is going to be admitted for observation. MRI of the brain without contrast is going to be requested. Stroke core measures will be implemented. Lipid panel will be done tomorrow. Neurochecks will be ordered. CT head was negative for stroke. CT of the head was negative for stenosis. And has a previous history of stroke 1 year ago. With complete recovery of motor activity. (2) HTN (hypertension), benign Is this a current diagnosis for this admission?: Yes Plan: 03/24/2018 patient is given the history of hypertension. He is on furosemide 20 mg p.o. daily at home. His blood pressure is 140/70 stable. Plan is to check the blood pressures every shift. (3) CAD (coronary artery disease) Qualifiers: Coronary Disease-Associated Artery/Lesion type: [place] artery [place] vs. transplanted heart: [place] heart Associated angina: without angina Qualified Code(s): I25.10 - Atherosclerotic heart disease of [place] coronary artery withou t angina pectoris Is this a current diagnosis for this admission?: Yes Plan: 03/24/2018-patient has history of coronary artery disease status post bypass. He is on aspirin and atorvastatin at home. Plan to resume those medications. Patient denies any chest pains during the examination. (4) Hypothyroidism Qualifiers: Hypothyroidism type: unspecified Qualified Code(s): E03.9 - Hypothyroidism, unspecified Is this a current diagnosis for this admission?: Yes Plan: 03/24/2018-patient has history of hypothyroidism. He is on levothyroxine 200 mcg daily. Plan is to resume the medication. (5) Obesity (BMI 30.0-34.9) Is this a current diagnosis for this admission?: Yes Plan: 03/24/2018-patient's BMI is more than 35. Diet exercise weight loss lifestyle modifications were discussed with the patient. Dietary consult was requested. - Time Time Spent: 50 to 70 Minutes Medications reviewed and adjusted accordingly: Yes Anticipated discharge: Home
[2018-03-24] MEDS ORDERED: BACLOFEN 10 MG TABLET PO PRN (15:03)
[2018-03-24] MEDS ORDERED: OXYCODONE-ACETAMINOPHEN 5-325 MG TABLET PO PRN (15:03)
--- NOTE | 2018-03-24 16:52 | RADIOLOGY REPORT (SQ) ---
EXAM DESCRIPTION: CHEST SINGLE VIEW COMPLETED DATE/TIME: 03/24/2018 4:42 pm REASON FOR STUDY: FOR MRI CONFIRMATION COMPARISON: 03/24/2018 EXAM PARAMETERS: NUMBER OF VIEWS: One view. TECHNIQUE: Single frontal radiographic view of the chest acquired. RADIATION DOSE: NA LIMITATIONS: None. FINDINGS: LUNGS AND PLEURA: No opacities, masses or pneumothorax. No pleural effusion. MEDIASTINUM AND HILAR STRUCTURES: No masses. Contour normal. HEART AND VASCULAR STRUCTURES: Borderline cardiomegaly. No evidence for failure. BONES: No acute findings. HARDWARE: Prior anterior median sternotomy wires. OTHER: No other significant finding. IMPRESSION: 1. Stable examinations since the prior study dated 03/24/2018. No acute findings. TECHNICAL DOCUMENTATION: JOB ID: [id number] [employer]- All Rights Reserved Reading location - IP/workstation name: [email or web address]
[2018-03-24 20:34] LABS: APPEARANCE,URINE CLEAR; BILIRUBIN,URINE NEGATIVE (NEGATIVE); COLOR,URINE STRAW; GLUCOSE, URINE NEGATIVE (NEGATIVE); KETONES,URINE NEGATIVE (NEGATIVE); LEUKOCYTE ESTERASE,URINE NEGATIVE (NEGATIVE); NITRITE,URINE NEGATIVE (NEGATIVE); PROTEIN,URINE NEGATIVE (NEGATIVE); URINE SPECIFIC GRAVITY 1.011; UROBILINOGEN,URINE NEGATIVE mg/dL (<2.0)
[2018-03-24] MEDS ORDERED: ATORVASTATIN CALCIUM 20 MG TABLET PO SCH (22:00)
--- NOTE | 2018-03-24 22:05 | RADIOLOGY REPORT (SQ) ---
EXAM DESCRIPTION: MR BRAIN WITHOUT IV CONTRAST COMPLETED DATE/TME: 03/24/2018 00:00 CLINICAL HISTORY: 67 years, Male, TIA COMPARISON: CTA head and neck to 819, CT brain 03/24/2018, MRI brain 09/06/2016. TECHNIQUE: 295 Images stored on PACS. LIMITATIONS: None. FINDINGS: Sagittal midline anatomic structures demonstrate an unremarkable appearance to the pituitary and suprasellar regions. The globes are intact. Minor mucosal thickening of the ethmoid air cells and maxillary sinuses. Normal flow void in visualized intracranial vessels. The visualized cranial nerve complex these are unremarkable. There is no intra or extra-axial hemorrhage. Diffusion-weighted images are normal, without evidence for acute infarct. Curvilinear area of increased T2/FLAIR signal in the left parietal region. This corresponds to an area of prior infarct seen on a 09/06/2016 MRI brain and may reflect a combination of laminar necrosis and/or nonspecific gliosis. No discrete mass.. No midline shift. Mild diffuse atrophy. IMPRESSION: Curvilinear area of increased FLAIR/T2 signal in the left parietal region, at the site of prior infarct. This may reflect nonspecific gliosis and/or laminar necrosis. No MR evidence for acute infarct. Mild diffuse atrophy.. copyright 2010 [employer]- All Rights Reserved
[2018-03-24] MEDS: TIZANIDINE HCL 4 MG TABLET PO SCH (22:15)
[2018-03-24] MEDS: FAMOTIDINE 20 MG TABLET PO SCH (22:15)
[2018-03-25] MEDS ORDERED: TIZANIDINE HCL 4 MG TABLET ONE (05:55)
[2018-03-25] MEDS ORDERED: LEVOTHYROXINE SODIUM 0.1 MG TABLET PO SCH (06:00)
[2018-03-25] MEDS: TIZANIDINE HCL 4 MG TABLET PO SCH (06:02)
[2018-03-25 06:37] LABS: ABSOLUTE EOSINOPHILS # (AUTO) 0.2 10^3/uL (0.0-0.6); ABSOLUTE LYMPHOCYTES (AUTO) 2.1 10^3/uL (0.5-4.7); ABSOLUTE MONOCYTES (AUTO) 0.6 10^3/uL (0.1-1.4); ABSOLUTE NEUT (AUTO) 3.2 10^3/uL (1.7-8.2); BASOPHILS % (AUTO) 0.7 % (0-2); EOSINOPHILS % (AUTO) 2.9 % (0-6); HEMATOCRIT 41.4 % (37.9-51.0); HEMOGLOBIN 14.4 g/dL (13.5-17.0); LYMPHOCYTES % (AUTO) 34.5 % (13-45); MEAN CORPUSCULAR HEMOGLOBIN 31.8 pg (27.0-33.4); MEAN CORPUSCULAR HGB CONC 34.7 g/dL (32.0-36.0); MEAN CORPUSCULAR VOLUME 92 fl (80-97); MONOCYTES % (AUTO) 9.3 % (3-13); PLATELET COUNT 164 10^3/uL (150-450); RED BLOOD COUNT 4.53 10^6/uL (4.35-5.55); RED CELL DISTRIBUTION WIDTH 13.7 % (11.5-14.0); SEGMENTED NEUTROPHILS % (AUTO) 52.6 % (42-78); TOTAL CELLS COUNTED % (AUTO) 100 %
[2018-03-25 06:57] LABS: ALANINE AMINOTRANSFERASE 28 U/L (21-72); ALKALINE PHOSPHATASE 51 U/L (38-126); ANION GAP 7 (5-19); ASPARTATE AMINO TRANSFERASE 20 U/L (17-59); BILIRUBIN,DIRECT 0.1 mg/dL (0.0-0.4); BILIRUBIN,TOTAL 0.5 mg/dL (0.2-1.3); BLOOD UREA NITROGEN 18 mg/dL (7-20); CARBON DIOXIDE 28 mmol/L (22-30); CHLORIDE 109 mmol/L (98-107); CHOLESTEROL 137.71 mg/dL (0-200); GLUCOSE 107 mg/dL (75-110); SODIUM 144.2 mmol/L (137-145); TOTAL PROTEIN 6.3 g/dL (6.3-8.2); TRIGLYCERIDES 171 mg/dL (<150)
[2018-03-25 07:07] LABS: DIRECT LDL 66 mg/dL (<100)
[2018-03-25 07:10] LABS: VLDL CHOLESTEROL 34.2 mg/dL (10-31)
[2018-03-25 08:25] VITALS: BP 110/64
[2018-03-25] MEDS: FAMOTIDINE 20 MG TABLET PO SCH (09:07)
[2018-03-25] MEDS ORDERED: ASPIRIN 325 MG TABLET, ENT COATED PO SCH (10:00)
[2018-03-25] MEDS ORDERED: FUROSEMIDE 20 MG TABLET PO SCH (10:00)
[2018-03-25] MEDS ORDERED: ENOXAPARIN SODIUM INJ 40 MG/0.4 ML DISP.SYRIN SUBCUT SCH (10:00)
[2018-03-25] MEDS ORDERED: CLOPIDOGREL BISULFATE 75 MG TABLET PO SCH (10:00)
--- NOTE | 2018-03-25 10:59 | PDOC DISCHARGE SUMMARY ---
General - Admit/Disc Date/PCP Admission Date/Primary Care Provider: 03/24/18 13:[facility] Discharge Date: 03/25/18 - Discharge Diagnosis (1) Transient ischemic attack Is this a current diagnosis for this admission?: Yes Summary: 03/24[age][id number]-yqcr-old male admitted for confusion and memory loss for a short while which was resolved. He is going to be admitted for observation. MRI of the brain without contrast is going to be requested. Stroke core measures will be implemented. Lipid panel will be done tomorrow. Neurochecks will be ordered. CT head was negative for stroke. CT of the head was negative for stenosis. And has a previous history of stroke 1 year ago. With complete recovery of motor activity. 03/25/2018 67-year-old male admitted with confusion and memory problems. By the time he came to the emergency room symptoms are resolved. CT head is negative for acute pathology CTA of the neck was negative for stenosis and MRI of the brain was negative for acute pathology. Stroke core measures were implemented during the hospital stay. Patient is going home today was advised to follow-up with primary care physician in 3-5 days. Patient agreed and verbalized response. (2) HTN (hypertension), benign Is this a current diagnosis for this admission?: Yes Summary: 03/24/2018 patient is given the history of hypertension. He is on furosemide 20 mg p.o. daily at home. His blood pressure is 140/70 stable. Plan is to check the blood pressures every shift. 03/25/2018-patient blood pressure today is 110/64. Stable. Presently on furosemide 20 mg p.o. daily. Patient was advised to resume his home medications once he is discharged. (3) CAD (coronary artery disease) Is this a current diagnosis for this admission?: Yes Summary: 03/24/2018-patient has history of coronary artery disease status post bypass. He is on aspirin and atorvastatin at home. Plan to resume those medications. Patient denies any chest pains during the examination. 03/25/2018-patient has history of coronary artery disease status post bypass he is on aspirin and atorvastatin those medications are continued during the hospital stay. EKG was negative for acute pathology. Patient was advised to continue his home medications upon discharge. (4) Hypothyroidism Is this a current diagnosis for this admission?: Yes (5) Obesity (BMI 30.0-34.9) Is this a current diagnosis for this admission?: Yes - Additional Information Resuscitation Status: Full Code Discharge Diet: Cardiac Discharge Activity: Activity As Tolerated Home Medications: Aspirin [Ecotrin] 81 mg PO DAILY 03/24/18 Baclofen [Baclofen 10 mg Tablet] 10 mg PO TID 03/24/18 Ergocalciferol (Vitamin D2) [Drisdol 50,000 unit (1.25MG) Capsule] 5,000 unit PO MO 03/24/18 Furosemide [Lasix 20 mg Tablet] 20 mg PO DAILY 03/24/18 Levothyroxine Sodium 200 mcg PO Q6AM 03/24/18 Oxycodone HCl/Acetaminophen [Percocet 5-325 mg Tablet] 1 tab PO Q6HP PRN 03/24/18 Pravastatin Sodium [Pravachol] 20 mg PO QHS 03/24/18 Tizanidine HCl [Zanaflex 4 mg Tablet] 4 mg PO TIDP PRN 03/24/18 History of Present Illness History of Present Illness: KAMERON WILSON is a 67 year old male hypertension hyperlipidemia coronary artery disease status post bypass, hypothyroidism, chronic back pains, previous history of stroke 1 year ago brought to the emergency room by his after she found him confused and unable to remember things so she decided to bring him to the hospital for further evaluation. The workup was done by ER physician Dr. Sawyer CT head was negative CTA of the head was negative. I went to see the patient patient is alert and awake oriented communicating very well. is at bedside. He denies any headaches nausea vomiting diarrhea constipation no lightheadedness no dizziness no falls this morning. Patient does not remember exactly what happened. The told me she looks confused and difficulty in remembering things. Explained to the family and the patient that I am going to put him in the hospital and had to do the MRI of the brain without contrast. Physical Exam Vital Signs: Temp Pulse Resp BP Pulse Ox 97.6 F 66 16 110/64 93 03/25/18 10:19 03/25/18 10:19 03/25/18 10:19 03/25/18 08:00 03/25/18 10:19 Intake & Output 03/24/18 03/25/18 03/26/18 06:59 06:59 06:59 Weight 118.3 kg General appearance: PRESENT: no acute distress Head exam: PRESENT: atraumatic Eye exam: PRESENT: PERRLA Teeth exam: PRESENT: poor dentation Neck exam: ABSENT: carotid bruit, JVD, lymphadenopathy, thyromegaly Respiratory exam: PRESENT: decreased breath sounds Cardiovascular exam: PRESENT: RRR. ABSENT: diastolic murmur, rubs, systolic murmur GI/Abdominal exam: PRESENT: normal bowel sounds, soft. ABSENT: distended, guarding, mass, organolmegaly, rebound, tenderness Extremities exam: PRESENT: full ROM. ABSENT: calf tenderness, clubbing, pedal edema Neurological exam: PRESENT: alert, awake, oriented to person, oriented to place, oriented to time, oriented to situation, CN II-XII grossly intact. ABSENT: motor sensory deficit Psychiatric exam: PRESENT: appropriate affect, normal mood. ABSENT: homicidal ideation, suicidal ideation Results Laboratory Results: 03/25/18 05:38 03/25/18 05:38 03/24/18 03/24/18 03/24/18 11:53 12:47 12:47 WBC 5.1 RBC 4.66 Hgb 14.6 Hct 42.5 MCV 91 MCH 31.3 MCHC 34.4 RDW 13.8 Plt Count 184 Seg Neutrophils % 56.8 Lymphocytes % 32.4 Monocytes % 7.7 Eosinophils % 2.3 Basophils % 0.8 Absolute Neutrophils 2.9 Absolute Lymphocytes 1.7 Absolute Monocytes 0.4 Absolute Eosinophils 0.1 Absolute Basophils 0.0 Sodium 144.8 Potassium 4.2 Chloride 107 Carbon Dioxide 28 Anion Gap 10 BUN 19 Creatinine 1.21 Est GFR ( Amer) > 60 Est GFR (Non-Af Amer) > 60 Glucose 93 Calcium 9.1 Total Bilirubin 0.5 AST 19 ALT 21 Alkaline Phosphatase 48 Total Protein 6.6 Albumin 4.2 Triglycerides Cholesterol LDL Cholesterol Direct VLDL Cholesterol HDL Cholesterol Urine Color STRAW Urine Appearance CLEAR Urine pH 5.0 Ur Specific [place] 1.011 Urine Protein NEGATIVE Urine Glucose (UA) NEGATIVE Urine Ketones NEGATIVE Urine Blood SMALL H Urine Nitrite NEGATIVE Ur Leukocyte Esterase NEGATIVE Urine WBC (Auto) 0 Urine RBC (Auto) 1 03/25/18 03/25/18 05:38 05:38 WBC 6.0 RBC 4.53 Hgb 14.4 Hct 41.4 MCV 92 MCH 31.8 MCHC 34.7 RDW 13.7 Plt Count 164 Seg Neutrophils % 52.6 Lymphocytes % 34.5 Monocytes % 9.3 Eosinophils % 2.9 Basophils % 0.7 Absolute Neutrophils 3.2 Absolute Lymphocytes 2.1 Absolute Monocytes 0.6 Absolute Eosinophils 0.2 Absolute Basophils 0.0 Sodium 144.2 Potassium 4.0 Chloride 109 H Carbon Dioxide 28 Anion Gap 7 BUN 18 Creatinine 1.03 Est GFR ( Amer) > 60 Est GFR (Non-Af Amer) > 60 Glucose 107 Calcium 9.0 Total Bilirubin 0.5 AST 20 ALT 28 Alkaline Phosphatase 51 Total Protein 6.3 Albumin 4.0 Triglycerides 171 H Cholesterol 137.71 LDL Cholesterol Direct 66 VLDL Cholesterol 34.2 H HDL Cholesterol 49 Urine Color Urine Appearance Urine pH Ur Specific [place] Urine Protein Urine Glucose (UA) Urine Ketones Urine Blood Urine Nitrite Ur Leukocyte Esterase Urine WBC (Auto) Urine RBC (Auto) 03/24/18 12:47 Troponin I < 0.012 Impressions: Head MRI 03/24/18 00:00 IMPRESSION: Curvilinear area of increased FLAIR/T2 signal in the left parietal region, at the site of prior infarct. This may reflect nonspecific gliosis and/or laminar necrosis. No MR evidence for acute infarct. Mild diffuse atrophy.. copyright 2010 [employer]- All Rights Reserved Head CT 03/24/18 12:04 IMPRESSION: No acute intracranial pathology. Unchanged encephalomalacia of the left parietal lobe. EVIDENCE OF ACUTE STROKE: NO. Head CTA 03/24/18 12:06 IMPRESSION: NO CTA EVIDENCE OF STENOSIS OR ANEURYSM OF THE [place]. Neck CTA 03/24/18 12:06 IMPRESSION: Technical limitations. No significant stenosis of the carotid arteries. Chest X-Ray 03/24/18 16:18 IMPRESSION: 1. Stable examinations since the prior study dated 03/24/2018. No acute findings. Qualifiers - * PATIENT BEING DISCHARGED WITH ANY OF THE FOLLOWING DIAGNOSIS: No VTE patient discharged on overlapping Therapy?: Yes
--- NOTE | 2018-03-25 21:41 | XCELERA REPORT ---
[address] [address] Transthoracic Echocardiogram Report Name: KAMERON WILSON Age: 67 yrs Gender: Male : 1950 Patient Status: Inpatient Patient Location: [place] [address]^A Study Date: 03/24/2018 06:35 PM Height: 70 in Weight: 263 lb BSA: 2.3 m2 Procedure: A two-dimensional transthoracic echocardiogram with color flow Doppler was performed. Study Quality: Poor. The study was technically difficult with many images being suboptimal in quality. Reason For Study: TIA History: TIA. Ordering Physician: DIANNA SALGADO Performed By: Inocencia Leos Interpretation Summary There is no obvious cardiac source of embolus noted on this transthoracic echocardiogram. Follow-up with a [facility] is suggested if cardiac source is still suspected. TIA The left ventricle is normal in size. There is normal left ventricular wall thickness. LV EF is 60% Left ventricular systolic function is normal. The left ventricular wall motion is normal. The right ventricle is not well visualized secondary to technical limitations Right atrium not well visualized secondary to technical limitations The left atrial size is normal. There is no evidence of mitral valve prolapse. There is no vegetation seen on the mitral valve. There is no mitral valve stenosis. There is no mitral regurgitation noted. There is no aortic valve stenosis No aortic regurgitation is present. There is no tricuspid valve prolapse. There is no tricuspid valve vegetation. There is no tricuspid stenosis. There is a trace amount of tricuspid regurgitation RVSP is 20 mm of Hg,with RA mean of 10. The pulmonic valve is not well visualized. There is no pericardial effusion. There is no obvious cardiac source of embolus noted on this transthoracic echocardiogram. Follow-up with a [facility] is suggested if cardiac source is still suspected MMode/2D Measurements & Calculations RVDd: 2.7 cm LVIDd: 4.7 cm FS: 35.3 % Ao root diam: 2.9 cm IVSd: 1.1 cm LVIDs: 3.1 cm EDV(Teich): 103.9 ml Ao root area: 6.8 cm2 LVPWd: 1.0 cm ESV(Teich): 36.7 ml LA dimension: 3.6 cm EF(Teich): 64.7 % Doppler Measurements & Calculations MV E max lexis: MV P1/2t max lexis: Ao V2 max: LV V1 max P.2 cm/sec 70.6 cm/sec 102.8 cm/sec 2.2 mmHg MV A max lexis: MV P1/2t: 66.6 msec Ao max PG: LV V1 max: 82.9 cm/sec MVA(P1/2t): 3.3 cm2 4.2 mmHg 74.0 cm/sec MV E/A: 0.79 MV dec slope: 310.6 cm/sec2 MV dec time: 0.19 sec TV V2 max: PA V2 max: TR max lexis: MV P1/2t-pr_phl: 94.1 cm/sec 74.7 cm/sec 157.0 cm/sec 66.6 msec TV max PG: PA max P.2 mmHg TR max P.5 mmHg 9.9 mmHg Left Ventricle The left ventricle is normal in size. There is normal left ventricular wall thickness. LV EF is 60%. Left ventricular systolic function is normal. Doppler measurements suggest impaired left ventricular relaxation, which is associated with grade I/IV or mild diastolic dysfunction. The left ventricular wall motion is normal. Right Ventricle The right ventricle is not well visualized secondary to technical limitations. Atria Right atrium not well visualized secondary to technical limitations. The left atrial size is normal. Mitral Valve There is no evidence of mitral valve prolapse. There is no vegetation seen on the mitral valve. There is no mitral valve stenosis. There is no mitral regurgitation noted. Aortic Valve There is no aortic valve stenosis. No aortic regurgitation is present. Tricuspid Valve There is no tricuspid valve prolapse. There is no tricuspid valve vegetation. There is no tricuspid stenosis. There is a trace amount of tricuspid regurgitation. RVSP is 20 mm of Hg,with RA mean of 10. Right ventricular systolic pressure is normal. Pulmonic Valve The pulmonic valve is not well visualized. Effusions There is no pericardial effusion. : DIANNA SALGADO > Malena Daley
== END 2018-03-25 10:39 | disposition home or self-care (01) ==
LOC: ER 11:35 → INTOOBSV 13:49 → EH 13:49 → 3W 03-25 02:25
PROVIDERS: ADMIT Internal Medicine; ATTEND Internal Medicine
DX: G45.9 Transient cerebral ischemic attack, unspecified (principal); I25.10 Atherosclerotic heart disease of native coronary artery without angina pectoris; E03.9 Hypothyroidism, unspecified; E66.9 Obesity, unspecified; G89.29 Other chronic pain; M54.9 Dorsalgia, unspecified; R41.3 Other amnesia; I11.0 Hypertensive heart disease with heart failure; I50.9 Heart failure, unspecified; E78.5 Hyperlipidemia, unspecified; R26.89 Other abnormalities of gait and mobility; Z68.34 Body mass index [BMI] 34.0-34.9, adult; Z86.73 Personal history of transient ischemic attack (TIA), and cerebral infarction without residual deficits; Z95.1 Presence of aortocoronary bypass graft; Z79.82 Long term (current) use of aspirin; Z79.899 Other long term (current) drug therapy; Z87.891 Personal history of nicotine dependence; Z82.3 Family history of stroke
CPT/HCPCS: 93005; 99285; 36415 ×2; 82962; 85025 ×2; 85610; 85730; 80053 ×2; 81001; 84484; 83036; 80061; 93306; 70551; 71045; 70450; 70496; 70498; 93010; 97162; A9270 ×9; J1650; J3490 ×2

== ENCOUNTER 2018-05-09 11:48 | Emergency (ER) | payer OTHER, MEDICARE ==
[2018-05-09 11:58] VITALS: BP 147/83
[2018-05-09] MEDS ORDERED: TETRACAINE HCL 0.5% OPH SOLN 4 ML OU ONE (12:32)
--- NOTE | 2018-05-09 12:37 | ER Document Report ---
ED General - General Chief Complaint: Eye Problem Stated Complaint: EYE PAIN Time Seen by Provider: 05/09/18 12:09 Primary Care Provider: LAINEY BELCHER MD [ACTIVE STAFF] - 05/09/18 [facility] [[facility] - Follow up in 3-5 days Notes: Patient is a 67-year-old male that presents to the emergency department for chief complaint of flashes and floaters in his left eye. Patient states that he started seeing these over the past few days, and seem to happen more frequently. He has had floaters in the past, but the flashes are new. [facility] was seen at [facility] and they advised to come to the emergency department to be evaluated. He does wear glasses, but has not seen an eye doctor in some time. Has not had a dilated retinal exam in a while. He denies history of diabetes, or high blood pressure, states he did have a TIA at some point when he was having confusion, but has not had any of the symptoms recently. He denies having any lightheadedness, dizziness, loss of vision, blurred vision, headache, nausea, or vomiting. He denies any numbness, tingling or weakness in any extremity. Past Medical History: TIA, hypertension, hyperlipidemia, CAD Past Surgical History: CABG, right eye surgery Social History: Denies current tobacco, alcohol or drug use. Family History: Reviewed and noncontributory for presenting illness Allergies: Reviewed, see documented allergy list. REVIEW OF SYSTEMS: Other than noted above, the 12 point review of systems was reviewed with the patient and were negative, all pertinent findings are included in the HPI. PHYSICAL EXAMINATION: Vital signs reviewed, nursing noted reviewed. GENERAL: Well-appearing, well-nourished and in no acute distress. HEAD: Atraumatic, normocephalic. EYES: Eyes appear normal, extraocular movements intact, PERRLA, sclera anicter ic, conjunctiva are normal. Intraocular pressures L 16 R 15, limited funduscopic exam appeared unremarkable, however is limited, and a nondilated exam. ENT: nares patent, oropharynx clear without exudates. Moist mucous membranes. NECK: Normal range of motion, supple without lymphadenopathy LUNGS: Breath sounds clear to auscultation bilaterally and equal. No wheezes rales or rhonchi. HEART: Regular rate and rhythm without murmurs ABDOMEN: Soft, nontender, normoactive bowel sounds. No rebound, guarding, or rigidity. No masses appreciated. EXTREMITIES: Nontender, good range of motion, no pitting or edema. NEUROLOGICAL: No focal neurological deficits. Moves all extremities spontaneously Motor and sensory grossly intact on exam. PSYCH: Normal mood, normal affect. SKIN: Warm, Dry, normal turgor, no rashes or lesions noted on exposed skin TRAVEL OUTSIDE OF THE [place] IN LAST 30 DAYS: No - Related Data Allergies/Adverse Reactions: No Known Allergies Allergy (Verified 05/09/18 12:06) Past Medical History - Social History Smoking Status: Never Smoker Frequency of alcohol use: None Drug Abuse: None Family History: None, CVA, DM Patient has suicidal ideation: No Patient has homicidal ideation: No - Past Medical History Cardiac Medical History: Reports: Hx Congestive Heart Failure, Hx Coronary Artery Disease, Hx Hypercholesterolemia, Hx Hypertension Endocrine Medical History: Reports: Hx Hypothyroidism Renal/ Medical History: Denies: Hx Peritoneal Dialysis Musculoskeletal Medical History: Reports Hx Arthritis Psychiatric Medical History: Denies: Hx Depression Past Surgical History: Reports: Hx Cardiac Surgery, Hx Coronary Artery Bypass Graft Physical Exam - Vital signs Vitals: Temp Pulse Resp BP Pulse Ox 97.9 F 64 18 147/83 H 96 05/09/18 11:57 05/09/18 11:57 05/09/18 11:57 05/09/18 11:57 05/09/18 11:57 Course - Re-evaluation Re-evalutation: Patient seen and examined, vital signs reviewed, patient appears well on exam, was not having any flashes or floaters on my examination, he was extensively in conference to be evaluated for this, his pressures were normal in both eyes, and ocular ultrasound, demonstrated possible dense and larger vitreal floater in the left eye, but no evidence of retinal detachment in either eye. I feel that the patient can follow-up with ophthalmology, given referral, advised to call today to set up an appointment either today or for tomorrow, to have a dilated retinal exam. His funduscopic exam today, was unremarkable however limited, given it was not a dilated exam. Patient was agreeable with this plan of care, he will follow-up with ophthalmology, advised if he had any loss of vision, that he needs to return to the emergency department or call the underground mine machinery mechanic immediately, to be evaluated, he is advised if he has significant pain in either eye to have this evaluated as well. Patient will be discharged home with follow-up. - Vital Signs Vital signs: Temp Pulse Resp BP Pulse Ox 97.9 F 64 18 147/83 H 96 05/09/18 11:57 05/09/18 11:57 05/09/18 11:57 05/09/18 11:57 05/09/18 11:57 Procedures - Ultrasound/Bedside Ultrasound/Bedside Ultrasound: Other - Bedside Ocular US Notes: Procedure: Bedside ocular ultrasound Indication: Flashes and floaters in the left eye Findings: Both orbits were examined with linear ultrasound probe, the right eye appeared normal, no evidence of vitreal hemorrhage, retinal detachment, or lens dislocation, overall normal-appearing, on the left, there was a small intravitreal hyperdensity, most likely large atrial floater, versus vitreal hemorrhage, the retina however appeared to be intact, and no discrete evidence of retinal detachment on the left, lens appeared normal, no evidence of lens dislocation. Discharge - Discharge Clinical Impression: Visual changes Condition: Stable Disposition: HOME, SELF-CARE Additional Instructions: Please follow-up with ophthalmology today, call for an appointment, you need to be seen because I feel that you are likely having a retinal tear, that needs to be treated as soon as possible. If you develop a black cloud or sheet coming of your vision, please return to the emergency department immediately or call the underground mine machinery mechanic immediately. Referrals: [facility] [Primary [facility]] - Follow up in 3-5 days LAINEY BELCHER MD [ACTIVE STAFF] - 05/09/18
== END 2018-05-09 12:46 | disposition home or self-care (01) ==
LOC: ER 11:48
DX: H53.9 Unspecified visual disturbance (principal); H57.12 Ocular pain, left eye; H43.392 Other vitreous opacities, left eye; I10 Essential (primary) hypertension; I25.10 Atherosclerotic heart disease of native coronary artery without angina pectoris
CPT/HCPCS: 99284; J3490

== ENCOUNTER 2018-05-19 11:02 | Emergency (ER) | payer MEDICARE, OTHER ==
[2018-05-19] MEDS ORDERED: OXYCODONE-ACETAMINOPHEN 5-325 MG TABLET PO ONE (11:26)
[2018-05-19] MEDS ORDERED: KETOROLAC TROMETHAMINE INJ/PF 30 MG/1 ML SDV IM ONE (11:26)
--- NOTE | 2018-05-19 11:27 | ER Document Report ---
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 Patient denies any traumatic injury. Patient does state he has chronic back pain but typically has symptoms that radiate to the left leg not to the right leg. Patient denies any fever, urinary retention or incontinence. Patient denies any weakness to the extremities. Associated Symptoms: Other - Low back pain. denies: Fever, Headache Exacerbated by: Movement Relieved by: Remaining still Similar symptoms previously: Yes Recently seen / treated by doctor: No - ROS ROS below otherwise negative: Yes Systems Reviewed and Negative: Yes All other systems reviewed and negative - CONSTITUTIONAL Constitutional: DENIES: Fever, Chills - NEURO Neurology: DENIES: Headache, Weakness - GASTROINTESTINAL Gastrointestinal: DENIES: Nausea - URINARY Urinary: DENIES: Dysuria, Urgency, Frequency - MUSCULOSKELETAL Musculoskeletal: REPORTS: Extremity pain - right hip, Back Pain - DERM Skin Color: Normal Skin Problems: None Past Medical History - General Information source: Patient - Social History Smoking Status: Never Smoker Frequency of alcohol use: None Drug Abuse: None Lives with: Family Family History: None, CVA, DM Patient has suicidal ideation: No Patient has homicidal ideation: No - Past Medical History Cardiac Medical History: Reports: Hx Congestive Heart Failure, Hx Coronary Artery Disease, Hx Hypercholesterolemia, Hx Hypertension Endocrine Medical History: Reports: Hx Hypothyroidism Renal/ Medical History: Denies: Hx Peritoneal Dialysis Musculoskeletal Medical History: Reports Hx Arthritis, Reports Other - Chronic back pain Psychiatric Medical History: Denies: Hx Depression Past Surgical History: Reports: Hx Cardiac Surgery, Hx Coronary Artery Bypass Graft Vertical Provider Document - CONSTITUTIONAL Agree With Documented VS: Yes Exam Limitations: No Limitations General Appearance: WD/WN, No Apparent Distress Notes: PHYSICAL EXAMINATION: GENERAL: Well-appearing, well-nourished and in no acute distress. HEAD: Atraumatic, normocephalic. EYES: sclera clear, anicteric, conjunctiva are normal. ENT: nares patent, Moist mucous membranes. NECK: Normal range of motion, supple no lymphadenopathy LUNGS: respirations unlabored HEART: Regular rate and rhythm without murmurs EXTREMITIES: Normal range of motion, no pitting or edema. No cyanosis. Gait normal, pt ambulates without difficulty BACK: Right lower lumbar paraspinal tenderness, no midline tenderness, no deformities or step-offs. No CVA tenderness. NEUROLOGICAL: Cranial nerves grossly intact. Normal speech, normal gait. No saddle anesthesia. PSYCH: Normal mood, normal affect. SKIN: Warm, Dry, normal turgor, no rashes or lesions noted. - INFECTION CONTROL TRAVEL OUTSIDE OF THE [place] IN LAST 30 DAYS: No Course - Re-evaluation Re-evalutation: 05/19/18 12:09 The patient presents with low back pain without signs of spinal cord compression, cauda equina syndrome, infection, aneurysm, or other serious etiology. The patient is neurologically intact. Given the extremely risk of these diagnoses further testing and evaluation for these possibilities does not appear to be indicated at this time. Patient has been instructed to return if the symptoms worsen or change in any way. - Vital Signs Vital signs: Temp Pulse Resp BP Pulse Ox 97.4 F 69 14 137/83 H 96 05/19/18 11:07 05/19/18 11:07 05/19/18 11:07 05/19/18 11:07 05/19/18 11:07 - Laboratory Laboratory results interpreted by me: 05/19/18 12:24 Labs- Entire Visit 05/19/18 11:50 Urine Color YELLOW Urine Appearance CLEAR Urine pH 5.0 Ur Specific [place] 1.023 Urine Protein NEGATIVE Urine Glucose (UA) NEGATIVE Urine Ketones NEGATIVE Urine Blood NEGATIVE Urine Nitrite NEGATIVE Urine Bilirubin NEGATIVE Urine Urobilinogen 2.0 H Ur Leukocyte Esterase NEGATIVE Urine WBC (Auto) 1 Urine RBC (Auto) 0 Squamous Epi Cells Auto 1 Urine Mucus (Auto) OCC Urine Ascorbic Acid NEGATIVE - Diagnostic Test Radiology reviewed: Image reviewed, Reports reviewed Discharge - Discharge Clinical Impression: Low back pain Qualifiers: Chronicity: unspecified Back pain laterality: right Sciatica presence: with sciatica Sciatica laterality: sciatica of right side Qualified Code(s): M54.41 - Lumbago with sciatica, right side Condition: Stable Disposition: HOME, SELF-CARE Instructions: Ice Packs ([facility]), Low Back Pain ([facility]), Muscle Strain ([facility]) Additional Instructions: Return immediately for any new or worsening symptoms Followup with your primary care provider, call tomorrow to make a followup appointment No heavy lifting Take your medications that you have prescribed for pain at home. Prescriptions: Cyclobenzaprine HCl [Flexeril 5 mg Tablet] 5 mg PO TID #15 tablet Lidocaine [Lidoderm 5% (700 mg) Transdermal Patch] 1 patch TP DAILY PRN #[id number] adh..patch PRN Reason: Referrals: [facility] [[facility]] - 05/22/18
--- NOTE | 2018-05-19 11:50 | RADIOLOGY REPORT (SQ) ---
EXAM DESCRIPTION: L SPINE WHOLE COMPLETED DATE/TIME: 05/19/2018 11:40 am REASON FOR STUDY: r lower back pain COMPARISON: None. NUMBER OF VIEWS: Five views including obliques. TECHNIQUE: AP, lateral, oblique, and sacral radiographic images acquired of the lumbar spine. LIMITATIONS: None. FINDINGS: MINERALIZATION: Normal. SEGMENTATION: Normal. No transitional anatomy. ALIGNMENT: Normal. VERTEBRAE: Maintained height. No fracture or worrisome bone lesion. DISCS: There is disc space narrowing at L2-L3 with endplate sclerosis. No other significant findings . POSTERIOR ELEMENTS: Pedicles and facets are intact. No pars defect or posterior arch defects. HARDWARE: None in the spine. PARASPINAL SOFT TISSUES: Normal. PELVIS: Intact as visualized. No fractures or worrisome bone lesions. SI joints intact. OTHER: No other significant finding. IMPRESSION: Disc degenerative disease at L2-L3. No other significant findings. TECHNICAL DOCUMENTATION: JOB ID: [id number] [employer]- All Rights Reserved Reading location - IP/workstation name: [email or web address]
[2018-05-19 12:13] LABS: APPEARANCE,URINE CLEAR; BILIRUBIN,URINE NEGATIVE (NEGATIVE); COLOR,URINE YELLOW; GLUCOSE, URINE NEGATIVE (NEGATIVE); KETONES,URINE NEGATIVE (NEGATIVE); LEUKOCYTE ESTERASE,URINE NEGATIVE (NEGATIVE); NITRITE,URINE NEGATIVE (NEGATIVE); PROTEIN,URINE NEGATIVE (NEGATIVE); URINE SPECIFIC GRAVITY 1.023
[2018-05-19] MEDS ORDERED: LIDOCAINE 5% (700 MG) TRANSDERMAL ADH..PATCH TP ONE (12:24)
[2018-05-19 12:37] VITALS: BP 135/78
== END 2018-05-19 12:34 | disposition home or self-care (01) ==
LOC: ER 11:02
DX: M54.41 Lumbago with sciatica, right side (principal); X50.0XXA Overexertion from strenuous movement or load, initial encounter; I25.10 Atherosclerotic heart disease of native coronary artery without angina pectoris; I10 Essential (primary) hypertension; Z95.1 Presence of aortocoronary bypass graft
CPT/HCPCS: 99283; 96372; 81001; 72110; J1885

== ENCOUNTER → 2018-11-10 | Outpatient (CLI) | payer OTHER ==
--- NOTE | 2018-11-10 12:03 | RADIOLOGY REPORT (SQ) ---
EXAM DESCRIPTION: MRI LUMBAR SPINE WITHOUT COMPLETED DATE/TIME: 11/10/2018 11:12 am REASON FOR STUDY: LOW BACK PAIN M54.5 LOW BACK PAIN COMPARISON: None. TECHNIQUE: Sagittal and Axial imaging includes T1, T2, STIR and gradient echo sequences. Coronal T2/ HASTE imaging. LIMITATIONS: None. FINDINGS: VISUALIZED UPPER ABDOMEN: Limited evaluation. No acute or suspicious findings suggested. SEGMENTATION: No transitional anatomy. The lowest well-developed disc space is labeled L5-S1. ALIGNMENT: Anatomic. VERTEBRAE: Intact. BONE MARROW: Mixed fatty and sclerotic vertebral body endplate changes at L2-3 DISC SIGNAL: Diffuse decreased T2 weighted intervertebral disc signal. High-grade disc space loss of height at L2-3 and L3-4. POSTERIOR ELEMENTS: Diffuse facet arthropathy. No pars defect evident. HARDWARE: None in the spine. CORD AND CONUS: Normal in size and signal intensity. Conus at the L1-2 level. SOFT TISSUES: No aortic aneurysm seen. No bulky retroperitoneal adenopathy or mass. No paraspinal mas s or fluid. T11-12: Moderate bilateral facet arthropathy. Moderate right, mild left foraminal narrowing. No ce ntral stenosis. T12-L1: Mild bilateral facet arthropathy. No central or foraminal stenosis L1-L2: Mild bilateral facet arthropathy. No central or foraminal stenosis L2-L3: Broad diffuse posterior disc bulge and bony spurring left greater than right, mild bilateral f acet hypertrophy. Borderline central canal narrowing. Mild right foraminal narrowing without exit L 2 nerve root impingement. Moderate left L2-3 foraminal narrowing with partial effacement of fat arou nd the exiting left L2 nerve root L3-L4: Moderate size right paracentral and proximal foraminal disc herniation, 1.5 cm in size. This flattens the thecal sac at the takeoff of the right L4 nerve root within the lateral recess, and caus es moderate to marked right proximal foraminal stenosis with partial effacement of the right L3 nerve root in the neural foramen. Changes are best shown on sagittal images 5-9, axial T2 images 14-18. There is moderate central canal stenosis at L3-4 with effacement of the CSF around the lumbar nerve r oots on axial T2 image 16. Mild left foraminal narrowing without exit L3 nerve root impingement L4-L5: Broad diffuse posterior disc bulging, moderate bilateral facet hypertrophy. No central stenos is. Mild right, mild to moderate left foraminal narrowing. L5-S1: Mild diffuse posterior disc bulging is present with bulky bilateral facet hypertrophy. No mukul tral stenosis. Mild bilateral foraminal narrowing SACRUM: Visualized upper sacrum intact. OTHER: No other significant findings. IMPRESSION: L3-4 moderate size right paracentral disc herniation causing moderate central canal sten osis, moderate to marked right foraminal narrowing, and flattening of the thecal sac near the takeoff of the right L4 nerve root in the lateral recess. TECHNICAL DOCUMENTATION: JOB ID: [id number] [email or web address]- All Rights Reserved Reading location - IP/workstation name: [email or web address]
== END ==
LOC: RAD 10:31
PROVIDERS: ATTEND Nurse Practitioner Family
DX: M51.26 Other intervertebral disc displacement, lumbar region (principal)
CPT/HCPCS: 72148

== ENCOUNTER 2019-11-28 08:27 | Day surgery (SDC) | payer OTHER ==
[~2019-11-28 08:27] MED LIST changes: +CHONDR SU A NA/HYALUR INTRAOC KIT (SURGICARE) ONE; +DORZOLAMIDE HCL 2%/TIMOLOL MALEAT 0.5% OPH SOLN 10 ML OD PRN; +EPINEPHRINE INJ/PF 1 MG/1 ML AMPULE ONE; +KETOROLAC TROMETHAMINE 0.45% 4 DROP/0.4 ML DROPERETTE OD PRN; +LIDOCAINE 1%/PHENYLEPHRINE 1.5% 1 ML VIAL ONE; +PREDNISOLONE ACETATE 1% OPH SUSP 5 ML OD PRN; -REGADENOSON INJ 0.4 MG/5 ML DISP.SYRIN IV ONE
[2019-11-28] MEDS ORDERED: ONDANSETRON HCL INJ/PF 4 MG/2 ML SDV ONE (08:46)
[2019-11-28] MEDS ORDERED: MIDAZOLAM 2 MG/2 ML INJ ONE (08:46)
[2019-11-28] MEDS ORDERED: FENTANYL CITRATE INJ/PF 100 MCG/2 ML AMPUL ONE (08:46)
[2019-11-28] MEDS: TETRACAINE HCL 0.5% OPH SOLN 4 ML OD PRN ×3 (09:00→09:36)
[2019-11-28] MEDS: BESIFLOXACIN HCL 0.6% OPH SUSP 5 ML BOTTLE OD PRN ×3 (09:01→09:55)
[2019-11-28] MEDS: TROPICAMIDE 1% OPH SOLN 15 ML OD PRN ×3 (09:01→09:26)
[2019-11-28] MEDS: CYCLOPENTOLATE 0.2%/PHENYLEPHRINE 1% OPH SOLN 2 ML OD PRN ×3 (09:01→09:26)
--- NOTE | 2019-11-28 14:41 | Operative Report ---
Operative Report-[facility] Operative Report: DATE OF SURGERY: November 28, 2019 PREOPERATIVE DIAGNOSIS: NUCLEAR CATARACT, RIGHT EYE. POSTOPERATIVE DIAGNOSIS: NUCLEAR CATARACT, RIGHT EYE. PROCEDURE PERFORMED: PHACOEMULSIFICATION WITH POSTERIOR CHAMBER INTRAOCULAR LENS IMPLANT, RIGHT EYE. SURGEON: Isaac Bruno DO MEDICATIONS AND ANESTHESIA: Versed: IV Versed Tetracaine drops: 1 to 2 drops given as needed COMPLICATION: None INDICATIONS FOR SURGERY: Medical necessity: Best corrected visual acuity worse than 20/40 secondary to cataracts with impairment of ability to carry out needs or desired activities, blurred vision, visual distortion, reduced contrast sensitivity and/or glare with association functional impairment and supporting documentation/testing, and cataracts causing symptomatic impairment of visual functions not corrected with tolerable changes in glasses or contact lenses interfering with activities of daily life. PROCEDURE: Consent: The risks, benefits and alternatives of this procedures was discussed with the patient. The patient read and signed the consent forms, was identified and was seated in the exam chair. IOL: MX 60 E 19.0 IOL Diopters: Phacoemulsification with posterior chamber intraocular lens implant: The face was prepped with 5% povidone iodine solution, and a few drops of 5% povidone iodine solution was instilled into the inferior fornix. A non-fenestrated drape was placed over the eye and the lids were parted with the speculum. A paracentesis was made with a 15 degree blade, and 1% lidocaine MPF followed by viscoelastic was injected into the anterior chamber. A 2.4 mm metal micro- keratome was used to create a temporal clear corneal incision. A circular anterior capsulorrhexis was created, followed by hydro-dissection and hydro- delineation. The phacoemulsification hand piece was inserted and the nucleus was removed with the Phaco chop technique. The irrigation-aspiration hand piece was used to remove the residual cortex, and vacuum the posterior capsule. The capsular bag was inflated and viscoelastic and the above-mentioned IOL was injected into the eye with care to insert both leaning and trailing haptics in the capsular bag. The irrigation/aspiration hand piece was reinserted to remove residual viscoelastic from the capsular bag and anterior chamber. The corneal incision was hydrated, and anterior chamber was inflated with sterile BSS via the paracentesis site, and found to be watertight. Postop medication: 1 drop of prednisolone into operative by followed by 1 drop of Cosopt into operative eye followed by 1 drop of Besivance intraoperative by other:
== END 2019-11-28 10:37 ==
LOC: SC 08:27
PROVIDERS: ATTEND Ophthalmology
DX: H25.11 Age-related nuclear cataract, right eye (principal); Z79.82 Long term (current) use of aspirin; E03.9 Hypothyroidism, unspecified; I10 Essential (primary) hypertension; I25.10 Atherosclerotic heart disease of native coronary artery without angina pectoris; G47.33 Obstructive sleep apnea (adult) (pediatric); R47.01 Aphasia; Z86.73 Personal history of transient ischemic attack (TIA), and cerebral infarction without residual deficits
CPT/HCPCS: 66984; V2632; J2250; J3490 ×2; J0171; J2405; J3010

== ENCOUNTER 2019-12-26 12:15 | Day surgery (SDC) | payer OTHER ==
[~2019-12-26 12:15] MED LIST changes: -DORZOLAMIDE HCL 2%/TIMOLOL MALEAT 0.5% OPH SOLN 10 ML OD PRN; +FENTANYL CITRATE INJ/PF 100 MCG/2 ML AMPUL ONE; -KETOROLAC TROMETHAMINE 0.45% 4 DROP/0.4 ML DROPERETTE OD PRN; +KETOROLAC TROMETHAMINE 0.45% 4 DROP/0.4 ML DROPERETTE OS PRN; +MIDAZOLAM 2 MG/2 ML INJ ONE; +ONDANSETRON HCL INJ/PF 4 MG/2 ML SDV ONE; -PREDNISOLONE ACETATE 1% OPH SUSP 5 ML OD PRN
[2019-12-26] MEDS: BESIFLOXACIN HCL 0.6% OPH SUSP 5 ML BOTTLE OS PRN ×4 (12:58→13:55)
[2019-12-26] MEDS: TROPICAMIDE 1% OPH SOLN 15 ML OS PRN ×3 (12:58→13:18)
[2019-12-26] MEDS: CYCLOPENTOLATE 0.2%/PHENYLEPHRINE 1% OPH SOLN 2 ML OS PRN ×3 (12:58→13:18)
[2019-12-26] MEDS: TETRACAINE HCL 0.5% OPH SOLN 4 ML OS PRN ×3 (12:59→13:40)
[2019-12-26] MEDS ORDERED: MIDAZOLAM 2 MG/2 ML INJ ONE (13:19)
[2019-12-26] MEDS: PREDNISOLONE ACETATE 1% OPH SUSP 5 ML OS PRN ×2 (13:49→13:55)
[2019-12-26] MEDS: DORZOLAMIDE HCL 2%/TIMOLOL MALEAT 0.5% OPH SOLN 10 ML OS PRN ×2 (13:49→13:55)
--- NOTE | 2019-12-26 14:51 | Operative Report ---
Operative Report-[facility] Operative Report: DATE OF SURGERY: December 26, 2019 PREOPERATIVE DIAGNOSIS: NUCLEAR CATARACT, LEFT EYE. POSTOPERATIVE DIAGNOSIS: NUCLEAR CATARACT, LEFT EYE. PROCEDURE PERFORMED: PHACOEMULSIFICATION WITH POSTERIOR CHAMBER INTRAOCULAR LENS IMPLANT, LEFT EYE. SURGEON: Isaac Bruno DO MEDICATIONS AND ANESTHESIA: Versed: IV Versed Tetracaine drops: 1 to 2 drops given as needed COMPLICATION: None INDICATIONS FOR SURGERY: Medical necessity: Best corrected visual acuity worse than 20/40 secondary to cataracts with impairment of ability to carry out needs or desired activities, blurred vision, visual distortion, reduced contrast sensitivity and/or glare with association functional impairment and supporting documentation/testing, and cataracts causing symptomatic impairment of visual functions not corrected with tolerable changes in glasses or contact lenses interfering with activities of daily life. PROCEDURE: Consent: The risks, benefits and alternatives of this procedures was discussed with the patient. The patient read and signed the consent forms, was identified and was seated in the exam chair. IOL: MX 60 E 20.0 IOL Diopters: Phacoemulsification with posterior chamber intraocular lens implant: The face was prepped with 5% povidone iodine solution, and a few drops of 5% povidone iodine solution was instilled into the inferior fornix. A non-fenestrated drape was placed over the eye and the lids were parted with the speculum. A paracentesis was made with a 15 degree blade, and 1% lidocaine MPF followed by viscoelastic was injected into the anterior chamber. A 2.4 mm metal micro- keratome was used to create a temporal clear corneal incision. A circular anterior capsulorrhexis was created, followed by hydro-dissection and hydro- delineation. The phacoemulsification hand piece was inserted and the nucleus was removed with the Phaco chop technique. The irrigation-aspiration hand piece was used to remove the residual cortex, and vacuum the posterior capsule. The capsular bag was inflated and viscoelastic and the above-mentioned IOL was injected into the eye with care to insert both leaning and trailing haptics in the capsular bag. The irrigation/aspiration hand piece was reinserted to remove residual viscoelastic from the capsular bag and anterior chamber. The corneal incision was hydrated, and anterior chamber was inflated with sterile BSS via the paracentesis site, and found to be watertight. Postop medication:1 drop of prednisolone into operative by followed by 1 drop of Cosopt into operative eye followed by 1 drop of Besivance intraoperative by Other:
== END 2019-12-26 14:27 ==
LOC: SC 12:15
PROVIDERS: ATTEND Ophthalmology
DX: H25.12 Age-related nuclear cataract, left eye (principal); Z98.41 Cataract extraction status, right eye; Z79.82 Long term (current) use of aspirin; E03.9 Hypothyroidism, unspecified; Z79.899 Other long term (current) drug therapy; Z87.891 Personal history of nicotine dependence; E66.9 Obesity, unspecified; Z86.73 Personal history of transient ischemic attack (TIA), and cerebral infarction without residual deficits; E78.00 Pure hypercholesterolemia, unspecified
CPT/HCPCS: 66984; J2250; J3490 ×2; J0171; J2405; J3010; V2632